=== PATIENT | male | born 1950 | race Caucasian/White ===

== ENCOUNTER → 2017-02-13 | Outpatient (CLI) | payer MEDICARE, OTHER ==
[~2017-02-13] MED LIST: ACET325T51 PO; CHOL50006 PO; FLUT16SP NAS; HYDR20TA PO; HYDR20TA3 PO; LEVO500T63 PO; LEVO88TA7 PO; SIMV20TA89 PO; SOTA160T PO; WARF5TAB8 PO
[2017-02-13 07:16] LABS: INR 2.37 (0.76-1.04); PROTHROMBIN TIME 25.8 SEC (9.31-12.49)
== END ==
LOC: LABNH.PM 00:49
PROVIDERS: ATTEND Family Medicine
DX: I48.91 Unspecified atrial fibrillation (principal)
CPT/HCPCS: 36415; 85610; P9604

== ENCOUNTER → 2017-02-15 | Outpatient (CLI) | payer MEDICARE, OTHER ==
[2017-02-15 00:42] LABS: BLOOD, URINE 3+ (NEGATIVE); COLOR,URINE YELLOW (YELLOW); LEUKOCYTE ESTERASE ,URINE NEGATIVE (NEGATIVE); NITRITE,URINE NEGATIVE (NEGATIVE); UROBILINOGEN,URINE 0.2 EU/DL (NORMAL)
[2017-02-15 00:50] LABS: BACTERIA,URINE NONE SEEN (NEGATIVE); WBC,URINE NONE SEEN /HPF (0-5)
== END ==
LOC: LABN.PM 00:23 → LABNH.PM 00:23
PROVIDERS: ATTEND Family Medicine
DX: N39.0 Urinary tract infection, site not specified (principal)
CPT/HCPCS: 81001; 87086

== ENCOUNTER → 2017-03-13 | Outpatient (CLI) | payer MEDICARE, OTHER ==
[2017-03-13 07:19] LABS: INR 2.15 (0.76-1.04); PROTHROMBIN TIME 23.4 SEC (9.31-12.49)
== END ==
LOC: LABNH.PM 01:43
PROVIDERS: ATTEND Family Medicine
DX: I48.91 Unspecified atrial fibrillation (principal)
CPT/HCPCS: 36415; 85610; P9604

== ENCOUNTER → 2017-03-20 | Outpatient (CLI) | payer MEDICARE, OTHER ==
[2017-03-20 06:26] LABS: BASOPHILS # (AUTO) 0.1 T/MM3 (0-0.2); BASOPHILS % (AUTO) 1.6 % (0-2); EOSINOPHILS % (AUTO) 14.7 % (0-4); HCT - HEMATOCRIT 48.4 % (41-53); HGB - HEMOGLOBIN 16.5 GM/DL (13.5-17.5); IMMATURE GRANULOCYTE # (AUTO) 0.01 T/MM3 (0.00-0.03); IMMATURE GRANULOCYTE % (AUTO) 0.1 % (0.0-0.5); LYMPHOCYTES # (AUTO) 2.1 T/MM3 (1-4.8); LYMPHOCYTES % (AUTO) 31.8 % (23-45); MEAN CORPUSCULAR HGB 31.6 UUG (26-34); MEAN CORPUSCULAR HGB CONC(MCHC 34.1 GM/DL (31-37); MEAN CORPUSCULAR VOLUME 92.7 UM3 (80-100); MEAN PLATELET VOLUME 9.1 UM3 (9.4-12.4); MONOCYTES # (AUTO) 0.8 T/MM3 (0-0.8); MONOCYTES % (AUTO) 12.5 % (0-9.0); NEUTROPHILS #(AUTO)-ABSOLUTE 2.7 T/MM3 (1.8-7.7); NEUTROPHILS % (AUTO) 39.3 % (33-66); RED BLOOD COUNT 5.22 M/MM3 (4.50-5.90); WBC - WHITE BLOOD COUNT 6.7 T/MM3 (4.5-11.0)
[2017-03-20 06:38] LABS: ANION GAP 10 MEQ/L (5-15); BUN/CREATININE RATIO 16 RATIO (6-26); CALCIUM 11.1 MG/DL (8.4-10.2); CHLORIDE 105 MEQ/L (98-107); CO2 - CARBON DIOXIDE 29 MEQ/L (22-30); CREATININE 0.8 MG/DL (0.8-1.5); GLOMERULAR FILTRATION RATE 97; GLUCOSE 107 MG/DL (75-110); POTASSIUM 4.3 MEQ/L (3.6-5); SODIUM 144 MEQ/L (134-144)
== END ==
LOC: LABNH.PM 00:14
PROVIDERS: ATTEND Family Medicine
DX: I50.9 Heart failure, unspecified (principal)
CPT/HCPCS: 36415; 80048; 85025; P9604

== ENCOUNTER → 2017-04-10 | Outpatient (CLI) | payer MEDICARE, OTHER ==
[2017-04-10 07:42] LABS: INR 2.05 (0.77-1.03); PROTHROMBIN TIME 22.4 SEC (9.48-12.52)
== END ==
LOC: LABNH.PM 01:39
PROVIDERS: ATTEND Family Medicine
DX: I48.91 Unspecified atrial fibrillation (principal)
CPT/HCPCS: 36415; 85610

== ENCOUNTER 2018-05-02 22:32 | Inpatient (IN) ==
--- NOTE | 2018-05-02 22:47 | Emergency Department Report ---
Fever HPI - General Stated Complaint: fever Dr was worried about Pneumonia Source: patient, family Mode of arrival: ambulatory Limitations: altered mental status - History of Present Illness HPI Narrative: Patient has had cough with fevers for several days. He was seen earlier in the day by his primary doctor, and was thought to have a probable pneumonia. No testing or x-rays were done, and they could not arrange to get the patient started on Levaquin 750 mg daily until tomorrow. Patient lives at a full nursing facility. Tonight the patient seemed worse, with fevers up to 102, increasing confusion, and increasing cough with mild decreased O2 saturations at 91%. Patient has no primary pulmonary diagnoses or treatments. - Related Data Home Medications Medication Instructions Recorded Confirmed Simvastatin 20 mg PO HS #0 03/13/14 05/02/18 Acetaminophen 650 mg PO Q4HR PRN #0 12/09/14 05/02/18 Cholecalciferol [Vit. D-3] 5,000 unit PO DAILY #0 11/17/16 05/02/18 Fluticasone Nasal Varnell [Flonase] 1 spray REINALDO DAILY #0 11/17/16 05/02/18 Sotalol HCl [Sotalol] 160 mg PO BID #0 11/17/16 05/02/18 warfarin 3 mg tablet 3 mg PO DAILY tab 09/28/17 05/02/18 Guaifenesin/Dextromethorphan 10 ml PO Q4H PRN 05/02/18 05/02/18 [Guaifenesin Dm Syrup] Levofloxacin [Levaquin] 1 tab PO DAILY 05/02/18 05/02/18 Naproxen 1 tab PO BID PRN 05/02/18 05/02/18 Previous Rx's Medication Instructions Recorded levothyroxine 112 mcg tablet 112 mcg PO QAM #90 tab 12/14/17 Cortef (Hydrocortisone) 20 mg 20 mg PO DAILY #30 tab 01/07/18 tablet Allergies Allergy/AdvReac Type Severity Reaction Status Date / Time No Known Drug Allergies Allergy Unknown Verified 05/02/18 23:23 Review of Systems All systems: reviewed and negative except as stated [facility] Medical History (Last Updated 09/27/17 @ 12:18 by Ruperto Reed MD) Hyperparathyroidism (Chronic Medical ~2014) Vitamin D deficiency (Chronic Medical ~01/2015) Hypothyroidism (Chronic Medical) Adrenal insufficiency (Chronic Medical ~01/2015) Obesity (BMI 30-39.9) (Chronic Medical) autism, diastolic dysfunction hypothyroid dyslipiddemia hard of hearing paroxysmal atrial fibrillation flecannide induced ventricular tachycarida Surgical History: meningocele repair possibly Family History: Family History (Last Updated 09/28/17 @ 09:24 by Princess Kent MA) Brother Diabetes Brother Diabetes Mother Cancer of breast - Social History Smoking status: Never smoker Alcohol intake: never Physical Exam - Limitations Limitations: altered mental status - General General appearance: alert, other (patient appears moderately sick) - Normal Exams: Head:: Normocephalic without trauma Eyes:: Pupils are PERRLA w/ EOMI, No scleral icterus, irritation, or foreign bodies noted ENMT:: No facial trauma, nasal exudates, pharyngeal erythema, or exudates are noted Neck:: Full range of motion, without adenopathy, JVD, bruits or thyromegaly Cardiovascular:: Regular rate and rhythm, without murmur or gallop, Pulses 2+ all extremities, capillary refill, <2 seconds all extremities Abdomen:: Bowel sounds positive, soft, non-tender, non-distended, no hepatosplenomegaly, masses or bruits noted Lymphatic:: No lymphadenopathy, or lymphedema noted Musculoskeletal:: No tenderness, or deformity noted, good range of motion, all extremities Integumentary:: No rashes, hives, or bruising noted, hair and nails, without abnormality Neurological:: Patient is alert, and oriented, cranial nerves, motor/sensory/ cerebellar, exams w/o gross deficits, to observation Psychiatric:: Patient exhibits, appropriate attention, emotion and affect - Chest Chest inspection: Present: normal inspection, symmetric chest wall rise. Absent : tenderness - Respiratory Respiratory exam: Absent: normal lung sounds bilaterally (course lung sounds bilaterally, harsh cough), respiratory distress, wheezes, stridor, accessory muscle use, prolonged expiratory phase Fever - MDM Narrative Medical decision making narrative: Initial O2 saturations after walking back to the bed were 90%. At rest patient does improve to 92%. Patient is given albuterol one treatment, normal saline 1 L bolus, and Toradol 30 mg IV CBC - white blood cell count with early left shift CMP - normal CXR - left lower lobe infiltrate consistent with pneumonia, mild right middle lobe/infrahilar infiltrate Lactate - normal Patient has improved on IV fluids, however after breathing treatment patient's pulse did increase dramatically. Blood pressures remained stable, but patient has the appearance of a worsening pneumonia, is recommended that he stay for inpatient admission for IV and biotics fluids and monitoring Dr. Sterling Perez will be admitting the patient, inpatient medical telemetry - Lab Data Result diagrams: 05/02/18 23:02 05/02/18 23:02 Disposition Clinical Impression: Left lower lobe pneumonia Qualifiers: Pneumonia type: due to unspecified organism Qualified Code(s): J18.1 - Lobar pneumonia, unspecified organism Disposition: 02 To [facility] [place] Acute Care Condition: Stable Prescriptions: No Action Simvastatin 20 mg PO HS #0 Acetaminophen 650 mg PO Q4HR PRN #0 PRN Reason: PAIN Fluticasone Nasal Varnell [Flonase] 1 spray REINALDO DAILY #0 Sotalol HCl [Sotalol] 160 mg PO BID #0 Naproxen 1 tab PO BID PRN PRN Reason: Pain Levofloxacin [Levaquin] 1 tab PO DAILY Cholecalciferol [Vit. D-3] 5,000 unit PO DAILY #0 Guaifenesin/Dextromethorphan [Guaifenesin Dm Syrup] 10 ml PO Q4H PRN PRN Reason: Cough warfarin 3 mg tablet 3 mg PO DAILY tab levothyroxine 112 mcg tablet 112 mcg PO QAM #90 tab Cortef (Hydrocortisone) 20 mg tablet 20 mg PO DAILY #30 tab Referrals: Hair Parra MD [Primary Care Provider] - - Seen By: physician
[2018-05-02] MEDS ORDERED: KETOROLAC 30 MG/ML INJECTION IVP ONE (22:50)
[2018-05-02] MEDS ORDERED: ALBUTEROL/IPRATROPIUM 2.5mg-0.5mg/3ml NEB AEROSOL ONE (22:50)
[2018-05-02] MEDS ORDERED: NS 1,000 ML IV ONE (22:50)
[2018-05-02] MEDS: SALINE FLUSH 10ml SYRINGE IVF PRN (23:08)
[2018-05-02] MEDS ORDERED: LEVOFLOXACIN PB 750 MG/150 ML BAG IV ONE (23:52)
[2018-05-02] MEDS ORDERED: NS FLUSH BAG 500ml IV PRN (23:56)
[2018-05-03] MEDS: SALINE FLUSH 10ml SYRINGE IVF PRN ×4 (00:01→23:04)
[2018-05-03] MEDS ORDERED: GUAIFENESIN/DM 5ml ORAL LIQUID PO PRN (00:45)
[2018-05-03] MEDS ORDERED: ACETAMINOPHEN 325 MG TABLET PO PRN (00:45)
[2018-05-03 00:49] VITALS: BMI 36.7
--- NOTE | 2018-05-03 00:49 | History & Physical Report ---
History of Present Illness Date: 05/03/18 Chief complaint: fever, cough, sweats HPI: 67 y/o w/ h/o PAF, hypothyroid, Autism, HLD comes to ER from [place] w/ couple of day h/o cough, fevers, sweats, tachypnea. Patient was seen earlier in the day by his primary doctor, and was thought to have a probable pneumonia. No testing or x-rays were done, and they could not arrange to get the patient started on Levaquin 750 mg daily until tomorrow. Patient lives at a full nursing facility. Tonight the patient seemed worse, with fevers up to 102, increasing malaise, and increasing cough with mild decreased O2 saturations at 91%. Patient has no primary pulmonary diagnoses or treatments. Patient denies CP, dyspnea, ADAMS, dysphagia, n/v/d and change in bowel/bladder function. IN ER patient had CXR concerning for LLL pneumonia and possible RML pneumonia. Patient had elevated WBC of 16.6 and was started on Levaquin IV 750mg x one and Vancomycin 1gram IV x one and IVFs. Patient also had DuoNeb treatment and current O2 sats reported at 93-94% on RA. Patient's lactic acid was 1.3, calcium 11.6 but otherwise remainder of labs WNL Patient given Toradol, acetaminophen in addition to the abx Patient admitted to the Hospitalist service for further evaluation and treatment. Review of Systems All systems PM: 10-point ROS was reviewed, no additional remarkable complaints except Past Medical History Medical History: Medical History (Last Updated 09/27/17 @ 12:18 by Ruperto Reed MD) Hyperparathyroidism (Chronic) Onset Date: ~2014 Vitamin D deficiency (Chronic) Onset Date: ~01/2015 Hypothyroidism (Chronic) Adrenal insufficiency (Chronic) Onset Date: ~01/2015 Obesity (BMI 30-39.9) (Chronic) Surgical History: meningocele repair possibly Family History: Family History (Last Updated 09/28/17 @ 09:24 by Princess Kent MA) Brother Diabetes Brother Diabetes Mother Cancer of breast Family History: As Above - Social History Smoking status: Never smoker Medications Home Medications Medication Instructions Recorded Confirmed Type Simvastatin 20 mg PO HS #0 03/13/14 05/02/18 History Acetaminophen 650 mg PO Q4HR PRN #0 12/09/14 05/02/18 History Cholecalciferol [Vit. D-3] 5,000 unit PO DAILY #0 11/17/16 05/02/18 History Fluticasone Nasal [place] [Flonase] 1 spray REINALDO DAILY #0 11/17/16 05/02/18 History Sotalol HCl [Sotalol] 160 mg PO BID #0 11/17/16 05/02/18 History warfarin 3 mg tablet 3 mg PO DAILY tab 09/28/17 05/02/18 History levothyroxine 112 mcg tablet 112 mcg PO QAM #90 tab 12/14/17 05/02/18 Rx Cortef (Hydrocortisone) 20 mg 20 mg PO DAILY #30 tab 01/07/18 05/02/18 Rx tablet Guaifenesin/Dextromethorphan 10 ml PO Q4H PRN 05/02/18 05/02/18 History [Guaifenesin Dm Syrup] Levofloxacin [Levaquin] 1 tab PO DAILY 05/02/18 05/02/18 History Naproxen 1 tab PO BID PRN 05/02/18 05/02/18 History Allergies Allergy/AdvReac Type Severity Reaction Status Date / Time No Known Drug Allergies Allergy Unknown Verified 05/02/18 23:23 Exam Vital Signs: Temperature 98.4 F 05/03/18 00:04 Pulse Rate 89 05/03/18 00:15 Respiratory Rate 25 H 05/03/18 00:15 Blood Pressure 122/59 05/03/18 00:15 Pulse Oximetry 91 05/03/18 00:24 Results - Labs CBC & Chem 7: 05/03/18 07:14 05/03/18 07:14 Assessment and Plan Assessment and Plan: Assessment: 1) Acute LLL HCAP POA 2) PAF 3) Elevated Calcium w/ h/o HyperPTHism 4) Hypothyroidism 5) Adrenal insufficiency 6) Autism 7) HLD 8) Chronic anticoagulation w/ warfarin PLan Admit to Hospitalist Treat for HCAP w/ Levaquin, Ceciliasyn, Vanc Pharmacy to dose Vanc Check CBC, BMP, PT/INR and Mag level in AM IVFs that of NS at 75 cc/hour Supportive Care Telemetry Home meds as indicated including warfarin and sotalol Regular low fat diet DNR is patient's desired code status RT consult - nebs and Oxygen therapy as needed CROW Assessment Health Care Associated Pneumonia Sepsis secondary to pneumonia - SIRS criteria Leukocytosis with shift, tachypnea , tele elevation at [place] AFIB - RVR Warfarin anticoagulation secondary to afib HDL on statin therapy Hypothyroidism Hyperparathyroidism Hypercalcemia secondary to hyperparathyroidism Adrenal insufficiency Vit D deficiency Autism Obesity with BMI 36.8 Plan Inpatient admission to [facility] for treatment of sepsis secondary to HCAP. Anticipate greater than 2 midnights of care needed. Initiate Zosyn levofloxacin and vancomycin for antimicrobial coverage. Respiratory support with O2 as needed. IVF of NS at 75cc/hr for hydration. Pharm consult for warfarin monitoring and adjustment. Tele secondary to afib. Continue with home medications, adjusting warfarin as needed. Speech eval secondary to pneumonia to help exclude aspiration. Check Phos secondary to hyperparathyroidism and hypercalcemia. Check TSH due to hypothyroidism and afib. Monitor CBC secondary to pneumonia and sepsis. Will need to monitor BMP secondary to IVF use and medications. DNR as per his requests. Care to return to Dr Parra at time of discharge from [facility]. DVT Prophylaxis: Coumadin Resuscitation Status: Do Not Resuscitate - Physician Narrative Physician: Marcial Maria MD Narrative: Date: 05/03/18 Time: 1131 Crow Have independently interviewed and examined pt. Chart reviewed. reviewed above not and concur. CC: Increasing cough, temp elevation. HPI: 67 y/o male with autism who resides in [facility] presents to ED secondary to increasing cough and temp elevation. Symptoms onset about 2 days before presentation. Was seen by Dr Parra on 05/02 and concern for pneumonia as raised - was to start on oral levofloxacin, but medication not able to be obtained until 05/03. When return to his care facility, developed increasing respiratory rate and work of breathing. Temp showing elevation. Transported to [facility] for evaluation. CXR showing infiltrate and WBC elevated at 16.6 with 75% neutrophils. Patient admitted to inpatient for treatment of Pneumonia with subsequent sepsis syndrome. PHMx: Parosymal atrial fib, Anticoagulation with warfarin, HDL. Hypothyroidism, Hyperparathyroidism, Adrenal insufficiency, Vit D deficiency, Autism, Obesity All: NKDA MEDS: sed MAR SHx: Singe, resides at [facility] in [place]. No smoke. Dr Parra PCP FHx: Mother of breast Ca. Brothers with DM ROS: limited by autism, currently only thing he says is yes. EXAM GEN: [id number] Awake alert HEENT: NC/AT PERRLA EOMI MMM NECK: supple, Trachea midline Lungs: Decrease breath sounds bilaterally. Shallow, rapid breathing. CV: tachy, irregular AB: soft, obese, NT/ND BS decreased EXT: No clubbing or cyanosis. 1+ BLE. Neuro: CN II-XII intact. No focal motor deficits Psych: awake alert, not agitated or restless Skin: warm and dry MS: normal muscle tone of upper/lower ext Lab: noted Assessment Health Care Associated Pneumonia Sepsis secondary to pneumonia - SIRS criteria Leukocytosis with shift, tachypnea , tele elevation at [place] AFIB - RVR Warfarin anticoagulation secondary to afib HDL on statin therapy Hypothyroidism Hyperparathyroidism Hypercalcemia secondary to hyperparathyroidism Adrenal insufficiency Vit D deficiency Autism Obesity with BMI 36.8 Plan Inpatient admission to [facility] for treatment of sepsis secondary to HCAP. Anticipate greater than 2 midnights of care needed. Initiate Zosyn levofloxacin and vancomycin for antimicrobial coverage. Respiratory support with O2 as needed. IVF of NS at 75cc/hr for hydration. Pharm consult for warfarin monitoring and adjustment. Tele secondary to afib. Continue with home medications, adjusting warfarin as needed. Speech eval secondary to pneumonia to help exclude aspiration. Check Phos secondary to hyperparathyroidism and hypercalcemia. Check TSH due to hypothyroidism and afib. Monitor CBC secondary to pneumonia and sepsis. Will need to monitor BMP secondary to IVF use and medications. DNR as per his requests. Care to return to Dr Parra at time of discharge from [facility]. Hospital Course Summary Disclaimer: The visit summary below is not to be considered part of the above Progress Note. Hospital Course: 05/03/18 Inpatient admission to [facility] for treatment of sepsis secondary to HCAP. Anticipate greater than 2 midnights of care needed. Initiate Zosyn levofloxacin and vancomycin for antimicrobial coverage. Respiratory support with O2 as needed. IVF of NS at 75cc/hr for hydration. Pharm consult for warfarin monitoring and adjustment. Tele secondary to afib. Continue with home medications, adjusting warfarin as needed. Speech eval secondary to pneumonia to help exclude aspiration. Check Phos secondary to hyperparathyroidism and hypercalcemia. Check TSH due to hypothyroidism and afib. Monitor CBC secondary to pneumonia and sepsis. Will need to monitor BMP secondary to IVF use and medications. DNR as per his requests. Care to return to Dr Parra at time of discharge from [facility].
[2018-05-03] MEDS: NS 1,000 ML IV SCH ×2 (01:03→21:05)
[2018-05-03] MEDS: PIPERACILLIN/TAZOBACTAM 3.375 GM in NS 100 ML IV SCH ×5 (03:00→20:28)
[2018-05-03] MEDS: LEVOTHYROXINE 112 MCG TABLET PO SCH (06:25)
[2018-05-03] MEDS ORDERED: SOTALOL 80 MG TABLET PO SCH (06:30)
[2018-05-03] MEDS: ALBUTEROL 2.5mg/3ml (0.083%) NEB AEROSOL PRN (06:44)
[2018-05-03] MEDS ORDERED: VANCOMYCIN - PHARMACY CONSULT MC ONE (06:56)
--- NOTE | 2018-05-03 07:50 | XRay Report ---
INDICATION: cough, fever PROCEDURE: CHEST 2-VIEWS UPRIGHT (PA & LAT) Encounter: Initial COMPARISON: November 20, 2016 FINDINGS: Airspace consolidation in both lower lobes, left greater than right. Lateral view is suboptimal. Upper lobes are clear. No pneumothorax. Heart size and mediastinal contours are stable. Pulmonary vascularity is unchanged. Scoliosis and degenerative change in the spine. Impression: Lower lobe pneumonia or aspiration. .
[2018-05-03] MEDS ORDERED: METOPROLOL 5mg/5ml INJECTION IVP ONE ×2 (08:23→10:01)
--- NOTE | 2018-05-03 08:38 | Pharmacy Consult-Antibiotics ---
Pharmacy Consult-Vancomycin - Laboratory Information WBC 13.8 T/MM3 (4.5-11.0) H 05/03/18 07:14 BUN 22.0 MG/DL (9-20) H 05/03/18 07:14 Creatinine 1.2 mg/dL (0.8-1.5) 05/03/18 07:14 - Consult Information Consult for vancomycin therapy noted from Dr Perez for Mr Mchugh, who is 67 years old and weighs 113.1kg. A one time dose of vancomycin 1 gram was given at 0130 this morning. Will begin vancomycin 1500mg IV q12h. Will continue to follow. Thank you.
[2018-05-03] MEDS: FLUTICASONE NASAL SPRAY 50mcg EA NOSTRIL SCH (09:10)
[2018-05-03] MEDS: HYDROCORTISONE 20 MG TABLET PO SCH (09:10)
[2018-05-03] MEDS ORDERED: WARFARIN - PHARMACY CONSULT MC ONE (09:51)
--- NOTE | 2018-05-03 10:44 | Pharmacy Consult ---
Pharmacy Consult-Warfarin - Laboratory Information 05/03/18 05/03/18 07:14 07:14 Hgb 14.1 Hct 41.6 INR 1.88 H - Consult Information Coumadin Consult: Day 1: Dx: LLL Pneumonia Baseline INR = 1.88 BE is an 67 yo patient with diagnoses of paroxysmal atrial fibrillation. Topher patient is on antcoagulation therapy with Warfarin 3 mg p o daily. Date INR Dose 05/03 1.88 4 mg I'm going to give Warfarin 4 mg p.o. today as the INR is subtherapeutic. The pharmacy will continue to monitor the INR's and will adjust the Warfarin accordingly. Thank you for the Protocol, Prakash Mayorga, Pharmacist
[2018-05-03] MEDS ORDERED: WARFARIN 4 MG TABLET PO SCH (12:00)
[2018-05-03] MEDS ORDERED: WARFARIN 3 MG TABLET PO SCH (12:00)
[2018-05-03] MEDS ORDERED: DiltiaZEM 25 MG/5 ML INJECTION IVP ONE ×2 (13:16→16:06)
--- NOTE | 2018-05-03 16:10 | Cardiology Consult Note ---
<Yamile Henson Sandra - Last Filed: 05/06/18 13:14> History of Present Illness Consult date: 05/03/18 Requesting physician: Marcial Maria Consult reason: atrial fibrillation Chief complaint: fever, cough History of present illness: Bradley is a 67 year old male with a history of PAF on Coumadin and Sotalol, HLD, hypothyroidism and autism who resides in [place] presented to ED secondary to increasing cough and temp elevation. Symptoms onset about 2 days before presentation. Was seen by Dr Parra on 05/02 and concern for pneumonia as raised - was to start on oral levofloxacin, but medication not able to be obtained until 05/03. When return to his care facility, developed increasing respiratory rate and work of breathing. Temp showing elevation. Transported to [facility] [place]. CXR showing infiltrate and WBC elevated at 16.6 with 75% neutrophils. He was admitted to inpatient for treatment of Pneumonia with subsequent sepsis syndrome. Due to atrial fibrillation with elevated rate Dr. Almonte is consulted and we appreciate the consult. Review of Systems ROS unobtainable: due to mental status [facility] Patient Stated Medical History Hearing Loss Yes Cardiac Arrhythmia Yes: A-FIB Congestive Heart Failure Yes Hypertension Yes Other Cardiology Yes: NONRHEUMATIC MITRAL INSUFFICIENCY Other Respiratory Yes: CHRONIC SINUSITIS Other GI Yes: COLITIS Other Hematologic Yes: ANTICOAGULATION THERAPY Cellulitis Yes Clinic Medical History (Last Updated 09/27/17 @ 12:18 by Ruperto Reed MD) Hyperparathyroidism (Chronic Medical ~2014) Vitamin D deficiency (Chronic Medical ~01/2015) Hypothyroidism (Chronic Medical) Adrenal insufficiency (Chronic Medical ~01/2015) Obesity (BMI 30-39.9) (Chronic Medical) Surgical History: meningocele repair possibly Family History: Family History (Last Updated 09/28/17 @ 09:24 by Princess Kent MA) Brother Diabetes Brother Diabetes Mother Cancer of breast - Social History Smoking status: Never smoker Alcohol intake: never Medications Home Medications Medication Instructions Recorded Confirmed Type Simvastatin 20 mg PO HS #0 03/13/14 05/02/18 History Acetaminophen 650 mg PO Q4HR PRN #0 12/09/14 05/02/18 History Cholecalciferol [Vit. D-3] 5,000 unit PO DAILY #0 11/17/16 05/02/18 History Fluticasone Nasal [place] [Flonase] 1 spray REINALDO DAILY #0 11/17/16 05/02/18 History Sotalol HCl [Sotalol] 160 mg PO BID #0 11/17/16 05/02/18 History warfarin 3 mg tablet 3 mg PO DAILY tab 09/28/17 05/02/18 History levothyroxine 112 mcg tablet 112 mcg PO QAM #90 tab 12/14/17 05/02/18 Rx Cortef (Hydrocortisone) 20 mg 20 mg PO DAILY #30 tab 01/07/18 05/02/18 Rx tablet Guaifenesin/Dextromethorphan 10 ml PO Q4H PRN 05/02/18 05/02/18 History [Guaifenesin Dm Syrup] Levofloxacin [Levaquin] 1 tab PO DAILY 05/02/18 05/02/18 History Naproxen 1 tab PO BID PRN 05/02/18 05/02/18 History Allergies Allergy/AdvReac Type Severity Reaction Status Date / Time No Known Drug Allergies Allergy Unknown Verified 05/02/18 23:23 Exam Vital signs: Temperature 96.1 F L 05/03/18 15:34 Pulse Rate 151 H 05/03/18 15:34 Respiratory Rate 32 H 05/03/18 15:34 Blood Pressure 131/69 05/03/18 15:34 Pulse Oximetry 94 05/03/18 15:34 - Constitutional mild distress, obese, cooperative - Routine HEENT Exam Head: Present: normocephalic ENT: Present: mucous membranes dry - Routine Neck Exam Absent: JVD, carotid bruit - Routine Chest/Breast/Axilla Exam Chest wall: Absent: tenderness - Routine Respiratory Exam Present: dyspnea, diminished air movement - Routine Cardiovascular Exam Present: tachycardia, irregularly irregular - Routine Abdominal Exam Present: soft - Routine Extremities Exam Present: edema (BLE) - Routine Skin Exam Present: intact, warm - Routine Neurological Exam Present: alert Results 05/03/18 07:14 05/03/18 07:14 CBC 05/03/18 Range/Units 07:14 WBC 13.8 H (4.5-11.0) T/MM3 RBC 4.37 L (4.50-5.90) M/MM3 Hgb 14.1 (13.5-17.5) GM/DL Hct 41.6 (41-53) % Plt Count 187 (130-400) T/MM3 Neut # (Auto) 10.0 H (1.8-7.7) T/MM3 Lymph # (Auto) 1.6 (1-4.8) T/MM3 [place] # (Auto) 1.8 H (0-0.8) T/MM3 Eos # (Auto) 0.3 (0-0.5) T/MM3 Baso # (Auto) 0.0 (0-0.2) T/MM3 Comprehensive Metabolic Panel 05/03/18 Range/Units 07:14 Sodium 141 (136-146) MEQ/L Potassium 4.0 (3.6-5) MEQ/L Chloride 106 (98-107) MEQ/L Carbon Dioxide 25 (22-30) MEQ/L BUN 22.0 H (9-20) MG/DL Creatinine 1.2 (0.8-1.5) mg/dL Glucose 159 H (75-110) MG/DL Calcium 11.3 H (8.4-10.2) MG/DL Intake and Output 05/03/18 05/03/18 05/03/18 06:59 14:59 22:59 Intake Total 500 / 1500 840 / 840 Output Total 50 / 50 50 / 50 Balance 500 / 1500 790 / 790 -50 / -50 Intake: IV 500 / 500 600 / 600 Levofloxacin Pb 750 mg In 150 150 / 150 ml @ 100 mls/hr IV Q24H [facility] Rx# :[id number] Ns 1,000 ml @ 75 mls/hr IV . 0 / 0 [id number] [facility] Rx#:[id number] Piperacillin/Tazobactam 3.375 100 / 100 100 / 100 gm In Ns 100 ml @ 200 mls/hr IV Q6H [facility] Rx#:[id number] Vancomycin 1,000 mg In NS 250ml 250 / 250 250 ml @ 250 mls/hr IV O [facility] Rx#:[id number] Vancomycin 1,500 mg In NS 500ml 500 / 500 500 ml @ 250 mls/hr IV 1000, 2200 [facility] Rx#:[id number] Oral 240 / 240 Output: Urine 50 / 50 50 / 50 Other: Urine Appearance Clear Cloudy Urine Color Dark Yellow Dark Yellow Stool Color Brown Stool Consistency Soft Formed Size of Bowel Movement Moderate Weight 248 lb 10.903 oz 249 lb 5.485 oz Patient Weight 05/04/18 06:59 Weight 249 lb 5.485 oz - Imaging and Cardiology Imaging & Cardiology Narrative: = = = = = = = = = = = = = = = = = = = = = = = = = = = = = = = = = = = = = = = = = = = = = = = = = = = = = = = = = = = Date of Exam: 05/02/18 Ordering Provider: Sterling Gross MD Type of Exam(s): XR chest 2V Reason for Exam(s): cough, fever INDICATION: cough, fever PROCEDURE: CHEST 2-VIEWS UPRIGHT (PA & LAT) Encounter: Initial COMPARISON: November 20, 2016 FINDINGS: Airspace consolidation in both lower lobes, left greater than right. Lateral view is suboptimal. Upper lobes are clear. No pneumothorax. Heart size and mediastinal contours are stable. Pulmonary vascularity is unchanged. Scoliosis and degenerative change in the spine. Impression: Lower lobe pneumonia or aspiration. 05/03/18 16:45 EKG interpretations - Dysrhythmias Supraventricular dysrhythmia: atrial fibrillation (RVR, rate 130) Assessment and Plan - Assessment and Plan (1) Atrial fibrillation with RVR Current visit: Yes Status: Acute - Cardizem 15mg IV now (Has had 10mg dose) - Metoprolol 5mg IV Q6h prn HR >100 - Digoxin 500mcg IV now - Digoxin 250mcg IV at 2300 - 2D echo - TSH and Mag - Takes Coumadin, INR 1.88 (2) Left lower lobe pneumonia Current visit: Yes Status: Acute per attending (3) Hypothyroidism Current visit: Yes Status: Chronic TSH with free T4 (4) Mixed hyperlipidemia Current visit: Yes Status: Chronic continue statin - Assessment and Plan AFib with RVR: - Cardiazem 15mg IV now (Has had 10mg dose) - Metoprolol 5mg IV Q6h prn HR >100 - Digoxin 500mcg IV now - Digoxin 250mcg IV at 2300 - 2D echo - TSH and Mag - Takes Coumadin, INR 1.88 Thank you for allowing us to participate in the care of this patient. Hospital Course Summary Disclaimer: The visit summary below is not to be considered part of the above Progress Note. Hospital Course: 05/03/18 Inpatient admission to [facility] for treatment of sepsis secondary to HCAP. Anticipate greater than 2 midnights of care needed. Initiate Zosyn levofloxacin and vancomycin for antimicrobial coverage. Respiratory support with O2 as needed. IVF of NS at 75cc/hr for hydration. Pharm consult for warfarin monitoring and adjustment. Tele secondary to afib. Continue with home medications, adjusting warfarin as needed. Speech eval secondary to pneumonia to help exclude aspiration. Check Phos secondary to hyperparathyroidism and hypercalcemia. Check TSH due to hypothyroidism and afib. Monitor CBC secondary to pneumonia and sepsis. Will need to monitor BMP secondary to IVF use and medications. DNR as per his requests. Care to return to Dr Parra at time of discharge from [facility]. <Ab Hastings - Last Filed: 05/07/18 13:21> [facility] Patient Stated Medical History Hearing Loss Yes Cardiac Arrhythmia Yes: A-FIB Congestive Heart Failure Yes Hypertension Yes Other Cardiology Yes: NONRHEUMATIC MITRAL INSUFFICIENCY Sleep Apnea No Other Respiratory Yes: CHRONIC SINUSITIS Other GI Yes: COLITIS Other Hematologic Yes: ANTICOAGULATION THERAPY Cellulitis Yes Clinic Medical History (Last Updated 09/27/17 @ 12:18 by Ruperto Reed MD) Hyperparathyroidism (Chronic Medical ~2014) Vitamin D deficiency (Chronic Medical ~01/2015) Hypothyroidism (Chronic Medical) Adrenal insufficiency (Chronic Medical ~01/2015) Obesity (BMI 30-39.9) (Chronic Medical) Family History: Family History (Last Updated 09/28/17 @ 09:24 by Princess Kent MA) Brother Diabetes Brother Diabetes Mother Cancer of breast Exam Vital signs: Temperature 96.5 F L 05/07/18 12:00 Pulse Rate 78 05/07/18 12:00 Respiratory Rate 20 05/07/18 12:00 Blood Pressure 124/67 05/07/18 12:00 Pulse Oximetry 96 05/07/18 12:00 Results 05/07/18 04:28 05/07/18 04:28 CBC 05/07/18 Range/Units 04:28 WBC 12.4 H (4.5-11.0) T/MM3 RBC 4.28 L (4.50-5.90) M/MM3 Hgb 14.0 (13.5-17.5) GM/DL Hct 40.7 L (41-53) % Plt Count 308 (130-400) T/MM3 Neut # (Auto) Not performed Lymph # (Auto) Not performed [place] # (Auto) Not performed Eos # (Auto) Not performed Baso # (Auto) Not performed Comprehensive Metabolic Panel 05/07/18 Range/Units 04:28 Sodium 140 (136-146) MEQ/L Potassium 4.1 (3.6-5) MEQ/L Chloride 105 (98-107) MEQ/L Carbon Dioxide 27 (22-30) MEQ/L BUN 12.0 (9-20) MG/DL Creatinine 0.8 (0.8-1.5) mg/dL Glucose 112 H (75-110) MG/DL Calcium 11.1 H (8.4-10.2) MG/DL Intake and Output 05/06/18 05/07/18 05/07/18 22:59 06:59 14:59 Intake Total 1770 / 1770 720.000 / 720.000 660 / 660 Output Total 900 / 900 400 / 400 450 / 450 Balance 870 / 870 320.000 / 320.000 210 / 210 Intake: IV 200 / 200 600.000 / 600.000 Piperacillin/Tazobactam 3.375 200 / 200 100 / 100 gm In Ns 100 ml @ 200 mls/hr IV Q6H [facility] Rx#:[id number] Vancomycin 1,500 mg In NS 500ml 500.000 / 500.000 500 ml @ 250 mls/hr IV 1000, 2200 [facility] Rx#:[id number] Oral 1570 / 1570 120 / 120 660 / 660 Output: Urine 600 / 600 400 / 400 450 / 450 Urine Amount (Catheter) 300 / 300 Other: Urine Appearance Clear Clear Clear Urine Color Yellow Pale Yellow Yellow # Voids 1 1 # Incontinent Voids 1 1 Weight 117.9 kg Patient Weight 05/08/18 06:59 Weight 117.9 kg Assessment and Plan - Attestation Attestation Narrative: 05/07/18 13:21 Recommendation After examining the patient I agree with the above assessment. I am involved in the formulation of the patient's plan of care. - Assessment and Plan (1) Hypothyroidism Current visit: Yes Status: Chronic (2) Left lower lobe pneumonia Current visit: Yes Status: Acute (3) Atrial fibrillation with RVR Current visit: Yes Status: Acute (4) Mixed hyperlipidemia Current visit: Yes Status: Chronic Hospital Course Summary Disclaimer: The visit summary below is not to be considered part of the above Progress Note.
[2018-05-03] MEDS ORDERED: DIGOXIN 500 MCG/2 ML INJECTION IVP ONE ×2 (16:29→23:00)
[2018-05-03] MEDS: METOPROLOL 5mg/5ml INJECTION IVP PRN (18:18)
[2018-05-03] MEDS: DiltiaZEM Drip 125 MG in NS 125 ML IV SCH (19:29)
[2018-05-03] MEDS: SIMVASTATIN 20 MG TABLET PO SCH (20:12)
[2018-05-04] MEDS: DiltiaZEM Drip 125 MG in NS 125 ML IV SCH ×3 (02:31→21:56)
[2018-05-04] MEDS: PIPERACILLIN/TAZOBACTAM 3.375 GM in NS 100 ML IV SCH ×4 (02:57→20:35)
[2018-05-04] MEDS: LEVOTHYROXINE 112 MCG TABLET PO SCH ×2 (04:40→05:36)
[2018-05-04] MEDS: NS 1,000 ML IV SCH (04:47)
--- NOTE | 2018-05-04 08:59 | Pharmacy Consult ---
Pharmacy Consult-Warfarin - Laboratory Information 05/03/18 05/03/18 05/04/18 07:14 07:14 04:40 Hgb 14.1 Hct 41.6 INR 1.88 H 2.57 H 05/04/18 04:43 Hgb 13.3 L Hct 39.6 L INR - Consult Information warfarin consult: day 2 67 yo M with history of atrial fibrillation and chronic anticoagulation with warfarin. home dose: Warfarin 3 mg po daily. target INR= 2.0 to 3.0. INR slightly sub-therapeutic on admission at 1.88. Date INR Dose 05/03 1.88 4 mg 05/04 2.57 plan: 1 mg INR has increased significantly from yesterday's result. Will give a dose of Warfarin 1 mg po x 1 dose today. Drug- drug interactions exist between Warfarin and Zosyn and also warfarin and Levaquin (Levaquin was a 1 time dose) both of these interactions have the potential to increase INR and risk of bleeding. The pharmacy will continue to monitor the INR's and will adjust the Warfarin accordingly. Thank you for the Protocol, Carina Alvarado RPh
[2018-05-04] MEDS: HYDROCORTISONE 20 MG TABLET PO SCH (09:05)
[2018-05-04] MEDS: FLUTICASONE NASAL SPRAY 50mcg EA NOSTRIL SCH (09:05)
[2018-05-04] MEDS ORDERED: WARFARIN 1 MG TABLET PO SCH (12:00)
--- NOTE | 2018-05-04 12:28 | Progress Note ---
- Date 05/04/18 Subjective: F/U: Health Care Associated Pneumonia, Sepsis syndrome secondary to pneumonia Sitting up in chair-more interactive that yesterday. Breathing less distress. Tracks better. Has been taking in food well. Maintaining saturations of RA. HR improved with diltiazem drip. Objective Vital signs: Temperature 98.1 F 05/04/18 08:00 Pulse Rate 86 05/04/18 11:15 Respiratory Rate 34 H 05/04/18 11:15 Blood Pressure 114/64 05/04/18 11:15 Pulse Oximetry 95 05/04/18 11:15 Height/Weight/BMI: Height 1.75 m Weight 115.7 kg Body Mass Index 36.7 - Constitutional Present: well nourished, well developed, average body habitus, obese, cooperative - Routine HEENT Exam Head: Present: normocephalic, atraumatic Eye: Present: EOMI, PERRL ENT: Present: mucous membranes moist - Routine Respiratory Exam Present: decreased breath sounds, respiratory distress (Mild), wheezes (Faint end expiratory), diminished air movement - Routine Cardiovascular Exam Present: no murmur, irregular rhythm, irregularly irregular - Routine Abdominal Exam Present: soft, normoactive bowel sounds, non distended, non tender - Routine Extremities Exam Present: edema (Trace), pulses intact. Absent: cyanosis, clubbing - Routine Skin Exam Present: dry, warm - Routine Neurological Exam Present: alert, moving all extremities, vision grossly intact, hearing grossly intact. Absent: motor deficit - Routine Psychiatric Exam Present: cooperative. Absent: agitated, paranoid Results - Labs CBC & Chem 7: 05/04/18 04:43 05/04/18 04:43 Assessment and Plan Assessment and Plan: Assessment Health Care Associated Pneumonia Sepsis secondary to pneumonia - SIRS criteria Leukocytosis with shift, tachypnea , tele elevation at IN AFIB - RVR Warfarin anticoagulation secondary to afib HDL on statin therapy Hypothyroidism Hyperparathyroidism Hypercalcemia secondary to hyperparathyroidism Adrenal insufficiency Vit D deficiency Autism Obesity with BMI 36.8 Plan WBC improving, less respiratory distress. Will continue Zosyn and Vancomycin for coverage - did not continue levofloxacin secondary to afib/RVR and potential need for CV meds. Continue Diltiazem drip as per cardiology to help heart rate/rhythm. Will stop IVF as taking oral well. Phos low -will start oral Phosphorus once a day with lunch. Recheck CBC in am due to pneumonia and resolving sepsis. Repeat BMP in am due to medications. Will check portable cxr in am for follow up of pneumonia. Case discussed with CCU nursing. Time spent with patient care 25 minutes. DVT Prophylaxis: Coumadin Resuscitation Status: Do Not Resuscitate - Time spent with patient Time with patient PN: 25 minutes - Physician Narrative Physician: Marcial Maria MD Narrative: Date: 05/04/18 Time: 1225 Hospital Course Summary Disclaimer: The visit summary below is not to be considered part of the above Progress Note. Hospital Course: 05/03/18 [place]patient [place] [facility] [place] secondary to HCAP. Anticipate greater than 2 midnights of care needed. Initiate Zosyn levofloxacin and vancomycin for antimicrobial coverage. Respiratory support with O2 as needed. IVF of NS at 75cc/hr for hydration. Pharm consult for warfarin monitoring and adjustment. Tele secondary to afib. Continue with home medications, adjusting warfarin as needed. Speech eval secondary to pneumonia to help exclude aspiration. Check Phos secondary to hyperparathyroidism and hypercalcemia. Check TSH due to hypothyroidism and afib. Monitor CBC secondary to pneumonia and sepsis. Will need to monitor BMP secondary to IVF use and medications. DNR as per his requests. Care to return to Dr Parra at time of discharge from [facility]. HR increased to 130-150s. Attempted boluses of IV metoprolol and diltiazem without sustained effect. Consult placed to Dr Hastings for cardiac evaluation. Transfer to CCU for IV diltiazem drip. 05/04/18 WBC improving, less respiratory distress. Will continue Zosyn and Vancomycin for coverage - did not continue levofloxacin secondary to afib/RVR and potential need for CV meds. Continue Diltiazem drip as per cardiology to help heart rate/rhythm. Will stop IVF as taking oral well. Phos low -will start oral Phosphorus once a day with lunch. Recheck CBC in am due to pneumonia and resolving sepsis. Repeat BMP in am due to medications. Will check portable cxr in am for follow up of pneumonia.
[2018-05-04] MEDS: POTASSIUM ACID PHOSPHATE 500 MG TABLET (URINARY ACIDIFIER) PO SCH (13:17)
--- NOTE | 2018-05-04 17:11 | Cardiology Progress Note ---
<Dia Espitia K - Last Filed: 05/04/18 17:22> Subjective Principal diagnosis: Atrial Fibrillation with RVR Exam Vital signs: Temperature 98.1 F 05/04/18 13:30 Pulse Rate 66 05/04/18 16:00 Respiratory Rate 34 H 05/04/18 11:15 Blood Pressure 114/64 05/04/18 11:15 Pulse Oximetry 96 05/04/18 15:43 Inpatient Medications: Generic Name Dose Route Start Last Admin Trade Name Freq PRN Reason Stop Dose Admin Acetaminophen 650 mg 05/03/18 00:45 Tylenol PO Q4HR PRN P Albuterol Sulfate 2.5 mg 05/03/18 06:20 05/03/18 06:44 Proventil Neb (0.083%) AEROSOL 2.5 mg Q4H PRN Administration Cholecalciferol 5,000 unit 05/03/18 09:00 05/04/18 09:05 Vit. D-3 PO 5,000 unit DAILY [facility] Administration Fluticasone Propionate 1 spray 05/03/18 09:00 05/04/18 09:05 Flonase EA NOSTRIL 1 spray DAILY V[facility]GIL Administration Guaifenesin/Dextromethorphan 10 ml 05/03/18 00:45 Robitussin Dm PO Q4H PRN Cough Hydrocortisone 20 mg 05/03/18 09:00 05/04/18 09:05 Cortef PO 20 mg DAILY [facility] Administration Piperacillin Sod/Tazobactam 100 mls @ 200 mls/hr 05/03/18 00:45 05/04/18 16: 04 Sod 3.375 gm/ Sodium Chloride IV Infused Q6H [facility] Infusion Vancomycin HCl 1,500 mg/ 500 mls @ 250 mls/hr 05/03/18 10:00 05/04/18 12:46 Sodium Chloride IV Infused 1000,2200 [facility] Infusion Diltiazem HCl 125 mg/ Sodium 125 mls @ 5 mls/hr 05/03/18 19:00 05/04/18 16:00 Chloride IV 15 mls/hr .Q24H V[facility] Infusion Protocol Levothyroxine Sodium 112 mcg 05/03/18 06:30 05/04/18 05:36 Synthroid PO Not Given ACB V[facility]IL Metoprolol Tartrate 5 mg 05/03/18 16:31 05/03/18 18:18 Lopressor IVP 5 mg Q6H PRN Administration Tachycardia Potassium Phosphate 1,000 mg 05/04/18 12:00 05/04/18 13:17 K-Phos Original (Urinary Acidifier) PO 1,000 mg WL [facility] Administration Simvastatin 20 mg 05/03/18 21:00 05/03/18 20:12 Zocor PO 20 mg HS VIRGIL Administration Sodium Chloride 10 - 80 ml 05/02/18 22:47 05/03/18 23:04 Iv Flush IVF 20 ml PRN PRN Administration Flushing Warfarin Sodium 0 05/03/18 10:00 Coumadin Protocol NOTE V[facility]GIL Discontinued Medications Generic Name Dose Route Start Last Admin Trade Name Freq PRN Reason Stop Dose Admin Albuterol/Ipratropium 3 ml 05/02/18 22:50 05/02/18 22:58 Duoneb AEROSOL 05/02/18 22:51 3 ml O ONE Administration Digoxin 250 mcg 05/03/18 23:00 05/03/18 23:04 Lanoxin IVP 05/03/18 23:01 250 mcg O ONE Administration Digoxin 500 mcg 05/03/18 16:29 05/03/18 17:23 Lanoxin IVP 05/03/18 16:30 500 mcg O ONE Administration Diltiazem HCl 10 mg 05/03/18 13:16 05/03/18 13:34 Cardizem 25 Mg Inj IVP 05/03/18 13:17 10 mg O ONE Administration Diltiazem HCl 15 mg 05/03/18 16:06 05/03/18 16:13 Cardizem 25 Mg Inj IVP 05/03/18 16:07 15 mg O ONE Administration Sodium Chloride 1,000 mls @ 999.9 mls/hr 05/02/18 22:50 05/03/18 00:05 Normal Saline IV 05/02/18 23:49 Infused .Q1H ONE Infusion Levofloxacin/Dextrose 750 mg in 150 mls @ 100 mls/hr 05/02/18 23:52 05/03/18 01:40 Levaquin 750 Mg Premix IV 05/03/18 01:21 Infused Q24H ONE Infusion Vancomycin HCl 1,000 mg/ 250 mls @ 250 mls/hr 05/03/18 00:30 05/03/18 03:00 Sodium Chloride IV 05/03/18 00:31 Infused O ONE Infusion Sodium Chloride 1,000 mls @ 75 mls/hr 05/03/18 00:45 05/04/18 13:30 Normal Saline IV Infused .[id number] V[facility]GIL Infusion Ketorolac Tromethamine 30 mg 05/02/18 22:50 05/02/18 23:08 Toradol Inj IVP 05/02/18 22:51 30 mg O ONE Administration Metoprolol Tartrate 5 mg 05/03/18 08:23 05/03/18 09:10 Lopressor IVP 05/03/18 08:24 5 mg O ONE Administration Metoprolol Tartrate 5 mg 05/03/18 10:01 05/03/18 11:35 Lopressor IVP 05/03/18 10:02 5 mg ONCE ONE Administration Sodium Chloride 500 ml 05/02/18 23:56 05/03/18 00:01 Normal Saline IV 500 ml PRN PRN Administration Sotalol HCl 160 mg 05/03/18 06:30 05/03/18 06:24 Betapace PO 160 mg BID [facility] Administration Vancomycin HCl 1 each 05/03/18 06:56 05/03/18 09:10 Pharmacy Consult - Vancomycin 05/03/18 06:57 1 each O ONE Administration Warfarin Sodium 3 mg 05/03/18 12:00 Coumadin PO NOON [facility] Warfarin Sodium 1 each 05/03/18 09:51 05/03/18 10:59 Pharmacy Consult - Warfarin 05/03/18 09:52 1 each O ONE Administration Warfarin Sodium 4 mg 05/03/18 12:00 05/03/18 14:04 Coumadin PO 4 mg NOON [facility] Administration Warfarin Sodium 1 mg 05/04/18 12:00 05/04/18 13:17 Coumadin PO 05/04/18 12:01 1 mg NOON [facility] Administration - Constitutional no acute distress, obese - Routine HEENT Exam Head: Present: normocephalic, atraumatic - Routine Neck Exam Present: supple, trachea midline. Absent: JVD, carotid bruit - Routine Respiratory Exam Present: decreased breath sounds. Absent: respiratory distress, rhonchi, wheezes - Routine Cardiovascular Exam Present: S1, S2, no murmur, irregular rhythm. Absent: rubs, JVD - Routine Abdominal Exam Present: soft, normoactive bowel sounds, non tender - Routine Extremities Exam Present: edema, pulses intact. Absent: cyanosis, clubbing - Routine Skin Exam Present: intact, dry, warm. Absent: cyanosis, jaundice - Routine Neurological Exam Present: alert - Routine Psychiatric Exam Present: cooperative. Absent: good judgment - Urinary Catheter Management Urethral Cath placed during this visit: yes Urethral indwelling: Yes Insertion date: 05/03/18 Insertion time: 15:30 Results 05/04/18 04:43 05/04/18 04:43 CBC 05/04/18 Range/Units 04:43 WBC 11.8 H (4.5-11.0) T/MM3 RBC 4.12 L (4.50-5.90) M/MM3 Hgb 13.3 L (13.5-17.5) GM/DL Hct 39.6 L (41-53) % Plt Count 213 (130-400) T/MM3 Neut # (Auto) 8.5 H (1.8-7.7) T/MM3 Lymph # (Auto) 1.4 (1-4.8) T/MM3 Dickinson # (Auto) 1.5 H (0-0.8) T/MM3 Eos # (Auto) 0.3 (0-0.5) T/MM3 Baso # (Auto) 0.0 (0-0.2) T/MM3 Comprehensive Metabolic Panel 05/04/18 Range/Units 04:43 Sodium 139 (136-146) MEQ/L Potassium 4.1 (3.6-5) MEQ/L Chloride 106 (98-107) MEQ/L Carbon Dioxide 23 (22-30) MEQ/L BUN 18.0 (9-20) MG/DL Creatinine 0.9 D (0.8-1.5) mg/dL Glucose 186 H (75-110) MG/DL Calcium 10.8 H (8.4-10.2) MG/DL Intake and Output 05/04/18 05/04/18 05/04/18 06:59 14:59 22:59 Intake Total 1086.667 / 4738.239 7882.750 / 1519.750 370 / 370 Output Total 1090 / 1090 670 / 670 355 / 355 Balance -3.333 / -3.333 849.750 / 849.750 Intake: IV 966.667 / 461.906 5211.750 / 1279.750 130 / 130 DiltiaZEM Drip 125 mg In Ns 125 120.00 / 120.00 114.25 / 114.25 30 / 30 ml @ 5 mls/hr IV .Q24H [facility] Rx# :[id number] Ns 1,000 ml @ 75 mls/hr IV . 350.00 / 350.00 565.5 / 565.5 [id number] VIRGIL Rx#:[id number] Piperacillin/Tazobactam 3.375 100 / 100 100 / 100 100 / 100 gm In Ns 100 ml @ 200 mls/hr IV Q6H [facility] Rx#:[id number] Vancomycin 1,500 mg In NS 500ml 396.667 / 396.667 500.000 / 500.000 500 ml @ 250 mls/hr IV 1000, 2200 VIR[facility] Rx#:[id number] Oral 120 / 120 240 / 240 240 / 240 Output: Urine Amount (Catheter) 1090 / 1090 670 / 670 355 / 355 Other: Urine Appearance Clear Urine Color Yellow Stool Color Brown Stool Consistency Soft Size of Bowel Movement Smear # Incontinent Bowel Movements 1 Weight 115.7 kg Patient Weight 05/05/18 06:59 Weight 115.7 kg - Imaging and Cardiology Echo: pending EKG results: report reviewed - EKG Interpretation EKG shows: atrial fibrillation Assessment and Plan - Assessment and Plan (1) Hypothyroidism Current visit: Yes Status: Chronic (2) Left lower lobe pneumonia Current visit: Yes Status: Acute (3) Atrial fibrillation with RVR Current visit: Yes Status: Acute (4) Mixed hyperlipidemia Current visit: Yes Status: Chronic - Assessment and Plan AFib with RVR: - Cardiazem 10 mg and 15 mg given yesterday without effectiveness - Metoprolol 5mg IV Q6h prn HR >100 - Patient received digoxin 500 mcg and 250 mcg without effectivess - Continue Cardizem gtt, HR in the 80s - 2D echo pending - TSH, Mg and K+ WNL - Takes Coumadin, INR 2.57 Hyperlipidemia - Continue Zocor 20 mg daily - Check lipids Thank you for allowing us to participate in the care of this patient. Ida Espitia APRN saw patient independently. Full assessment and plan of care verbally discussed with Dr. Hastings who is in agreement with the above. Hospital Course Summary Disclaimer: The visit summary below is not to be considered part of the above Progress Note. Hospital Course: 05/03/18 Inpatient admission to [facility] [place] for treatment of sepsis secondary to HCAP. Anticipate greater than 2 midnights of care needed. Initiate Zosyn levofloxacin and vancomycin for antimicrobial coverage. Respiratory support with O2 as needed. IVF of NS at 75cc/hr for hydration. Pharm consult for warfarin monitoring and adjustment. Tele secondary to afib. Continue with home medications, adjusting warfarin as needed. Speech eval secondary to pneumonia to help exclude aspiration. Check Phos secondary to hyperparathyroidism and hypercalcemia. Check TSH due to hypothyroidism and afib. Monitor CBC secondary to pneumonia and sepsis. Will need to monitor BMP secondary to IVF use and medications. DNR as per his requests. Care to return to Dr Parra at time of discharge from [facility]. HR increased to 130-150s. Attempted boluses of IV metoprolol and diltiazem without sustained effect. Consult placed to Dr Hastings for cardiac evaluation. Transfer to CCU for IV diltiazem drip. 05/04/18 WBC improving, less respiratory distress. Will continue Zosyn and Vancomycin for coverage - did not continue levofloxacin secondary to afib/RVR and potential need for CV meds. Continue Diltiazem drip as per cardiology to help heart rate/rhythm. Will stop IVF as taking oral well. Phos low -will start oral Phosphorus once a day with lunch. Recheck CBC in am due to pneumonia and resolving sepsis. Repeat BMP in am due to medications. Will check portable cxr in am for follow up of pneumonia. <Ab Hastings - Last Filed: 05/07/18 13:22> Exam Vital signs: Temperature 96.5 F L 05/07/18 12:00 Pulse Rate 78 05/07/18 12:00 Respiratory Rate 20 05/07/18 12:00 Blood Pressure 124/67 05/07/18 12:00 Pulse Oximetry 96 05/07/18 12:00 Inpatient Medications: Generic Name Dose Route Start Last Admin Trade Name Freq PRN Reason Stop Dose Admin Acetaminophen 650 mg 05/03/18 00:45 Tylenol PO Q4HR PRN P Al Hydroxide/Mg Hydroxide 30 ml 05/06/18 18:37 Maalox Plus PO Q3-4HR PRN Indigestion Albuterol Sulfate 2.5 mg 05/03/18 06:20 05/06/18 07:00 Proventil Neb (0.083%) AEROSOL 2.5 mg Q4H PRN Administration Bisacodyl 10 mg 05/06/18 18:37 Dulcolax RECTALLY DAILY PRN Constipation Cholecalciferol 5,000 unit 05/03/18 09:00 05/07/18 08:26 Vit. D-3 PO 5,000 unit DAILY VIRGIL Administration Fluticasone Propionate 1 spray 05/03/18 09:00 05/07/18 08:26 Flonase EA NOSTRIL 1 spray DAILY VIRGIL Administration Guaifenesin/Dextromethorphan 10 ml 05/03/18 00:45 Robitussin Dm PO Q4H PRN Cough Hydrocortisone 20 mg 05/03/18 09:00 05/07/18 08:26 Cortef PO 20 mg DAILY VIRGIL Administration Piperacillin Sod/Tazobactam 100 mls @ 200 mls/hr 05/03/18 00:45 05/07/18 08: 33 Sod 3.375 gm/ Sodium Chloride IV 200 mls/hr Q6H V[facility]GIL Administration Vancomycin HCl 1,500 mg/ 500 mls @ 250 mls/hr 05/03/18 10:00 05/07/18 09:19 Sodium Chloride IV 250 mls/hr 1000,2200 VIRGIL Administration Levothyroxine Sodium 112 mcg 05/03/18 06:30 05/07/18 06:00 Synthroid PO 112 mcg ACB VIRGIL Administration Magnesium Hydroxide 30 ml 05/06/18 18:37 Mom PO DAILY PRN Constipation Nitroglycerin 0.4 mg 05/06/18 18:37 Nitrostat SL Q5MIN3 PRN Chest pain Potassium Phosphate 1,000 mg 05/04/18 12:00 05/07/18 11:53 K-Phos Original (Urinary Acidifier) PO 1,000 mg WL VIRGIL Administration Promethazine HCl 12.5 - 25 mg 05/06/18 18:37 Phenergan Inj IVP Q6H PRN Nausea Simvastatin 20 mg 05/03/18 21:00 05/06/18 20:08 Zocor PO 20 mg HS V[facility]IL Administration Sodium Chloride 10 - 80 ml 05/02/18 22:47 05/03/18 23:04 Iv Flush IVF 20 ml PRN PRN Administration Flushing Sotalol HCl 160 mg 05/06/18 20:00 05/07/18 06:00 Betapace PO 160 mg ACBID VIRGIL Administration Warfarin Sodium 0 05/03/18 10:00 Coumadin Protocol NOTE VIRGIL Discontinued Medications Generic Name Dose Route Start Last Admin Trade Name Freq PRN Reason Stop Dose Admin Albuterol/Ipratropium 3 ml 05/02/18 22:50 05/02/18 22:58 Duoneb AEROSOL 05/02/18 22:51 3 ml O ONE Administration Digoxin 250 mcg 05/03/18 23:00 05/03/18 23:04 Lanoxin IVP 05/03/18 23:01 250 mcg O ONE Administration Digoxin 500 mcg 05/03/18 16:29 05/03/18 17:23 Lanoxin IVP 05/03/18 16:30 500 mcg O ONE Administration Diltiazem HCl 10 mg 05/03/18 13:16 05/03/18 13:34 Cardizem 25 Mg Inj IVP 05/03/18 13:17 10 mg O ONE Administration Diltiazem HCl 15 mg 05/03/18 16:06 05/03/18 16:13 Cardizem 25 Mg Inj IVP 05/03/18 16:07 15 mg O ONE Administration Sodium Chloride 1,000 mls @ 999.9 mls/hr 05/02/18 22:50 05/03/18 00:05 Normal Saline IV 05/02/18 23:49 Infused .Q1H ONE Infusion Levofloxacin/Dextrose 750 mg in 150 mls @ 100 mls/hr 05/02/18 23:52 05/03/18 01:40 Levaquin 750 Mg Premix IV 05/03/18 01:21 Infused Q24H ONE Infusion Vancomycin HCl 1,000 mg/ 250 mls @ 250 mls/hr 05/03/18 00:30 05/03/18 03:00 Sodium Chloride IV 05/03/18 00:31 Infused O ONE Infusion Sodium Chloride 1,000 mls @ 75 mls/hr 05/03/18 00:45 05/04/18 13:30 Normal Saline IV Infused .[id number] V[facility]IL Infusion Diltiazem HCl 125 mg/ Sodium 125 mls @ 5 mls/hr 05/03/18 19:00 05/05/18 10:30 Chloride IV Infused .Q24H V[facility]IL Infusion Protocol Ketorolac Tromethamine 30 mg 05/02/18 22:50 05/02/18 23:08 Toradol Inj IVP 05/02/18 22:51 30 mg O ONE Administration Metoprolol Tartrate 5 mg 05/03/18 08:23 05/03/18 09:10 Lopressor IVP 05/03/18 08:24 5 mg O ONE Administration Metoprolol Tartrate 5 mg 05/03/18 10:01 05/03/18 11:35 Lopressor IVP 05/03/18 10:02 5 mg ONCE ONE Administration Metoprolol Tartrate 5 mg 05/03/18 16:31 05/06/18 03:42 Lopressor IVP 5 mg Q6H PRN Administration Tachycardia Metoprolol Tartrate 25 mg 05/05/18 17:30 Lopressor PO BIDWM VIRGIL Metoprolol Tartrate 25 mg 05/05/18 09:50 05/06/18 07:22 Lopressor PO 25 mg BIDWM VIRGIL Administration Metoprolol Tartrate 25 mg 05/06/18 09:44 05/06/18 09:50 Lopressor PO 05/06/18 09:45 25 mg O ONE Administration Metoprolol Tartrate 50 mg 05/06/18 17:30 Lopressor PO BIDWM [facility] Sodium Chloride 500 ml 05/02/18 23:56 05/03/18 00:01 Normal Saline IV 500 ml PRN PRN Administration Sotalol HCl 160 mg 05/03/18 06:30 05/03/18 06:24 Betapace PO 160 mg BID [facility] Administration Vancomycin HCl 1 each 05/03/18 06:56 05/03/18 09:10 Pharmacy Consult - Vancomycin 05/03/18 06:57 1 each O ONE Administration Warfarin Sodium 3 mg 05/03/18 12:00 Coumadin PO NOON [facility] Warfarin Sodium 1 each 05/03/18 09:51 05/03/18 10:59 Pharmacy Consult - Warfarin 05/03/18 09:52 1 each O ONE Administration Warfarin Sodium 4 mg 05/03/18 12:00 05/03/18 14:04 Coumadin PO 4 mg NOON [facility] Administration Warfarin Sodium 1 mg 05/04/18 12:00 05/04/18 13:17 Coumadin PO 05/04/18 12:01 1 mg NOON [facility] Administration Warfarin Sodium 1 mg 05/06/18 12:00 05/06/18 12:50 Coumadin PO 05/06/18 12:30 1 mg NOON [facility] Administration Warfarin Sodium 2 mg 05/07/18 12:00 05/07/18 11:53 Coumadin PO 05/07/18 12:15 2 mg NOON [facility] Administration - Urinary Catheter Management Urethral Cath placed during this visit: no Results 05/07/18 04:28 05/07/18 04:28 CBC 05/07/18 Range/Units 04:28 WBC 12.4 H (4.5-11.0) T/MM3 RBC 4.28 L (4.50-5.90) M/MM3 Hgb 14.0 (13.5-17.5) GM/DL Hct 40.7 L (41-53) % Plt Count 308 (130-400) T/MM3 Neut # (Auto) Not performed Lymph # (Auto) Not performed Dickinson # (Auto) Not performed Eos # (Auto) Not performed Baso # (Auto) Not performed Comprehensive Metabolic Panel 05/07/18 Range/Units 04:28 Sodium 140 (136-146) MEQ/L Potassium 4.1 (3.6-5) MEQ/L Chloride 105 (98-107) MEQ/L Carbon Dioxide 27 (22-30) MEQ/L BUN 12.0 (9-20) MG/DL Creatinine 0.8 (0.8-1.5) mg/dL Glucose 112 H (75-110) MG/DL Calcium 11.1 H (8.4-10.2) MG/DL Intake and Output 05/06/18 05/07/18 05/07/18 22:59 06:59 14:59 Intake Total 1770 / 1770 720.000 / 720.000 660 / 660 Output Total 900 / 900 400 / 400 450 / 450 Balance 870 / 870 320.000 / 320.000 210 / 210 Intake: IV 200 / 200 600.000 / 600.000 Piperacillin/Tazobactam 3.375 200 / 200 100 / 100 gm In Ns 100 ml @ 200 mls/hr IV Q6H [facility] Rx#:[id number] Vancomycin 1,500 mg In NS 500ml 500.000 / 500.000 500 ml @ 250 mls/hr IV 1000, 2200 V[facility] Rx#:[id number] Oral 1570 / 1570 120 / 120 660 / 660 Output: Urine 600 / 600 400 / 400 450 / 450 Urine Amount (Catheter) 300 / 300 Other: Urine Appearance Clear Clear Clear Urine Color Yellow Pale Yellow Yellow # Voids 1 1 # Incontinent Voids 1 1 Weight 117.9 kg Patient Weight 05/08/18 06:59 Weight 117.9 kg Assessment and Plan - Assessment and Plan (1) Hypothyroidism Current visit: Yes Status: Chronic (2) Left lower lobe pneumonia Current visit: Yes Status: Acute (3) Atrial fibrillation with RVR Current visit: Yes Status: Acute (4) Mixed hyperlipidemia Current visit: Yes Status: Chronic - Attestation Attestation Narrative: I agree with the above and I am involved in the formulation of the patient's plan of care. 05/07/18 13:21 Hospital Course Summary Disclaimer: The visit summary below is not to be considered part of the above Progress Note. Addendum entered and electronically signed by Dia Espitia APRN 05/05/18 09:26: * Will stop cardizem gtt and start metoprolol 12.5 mg PO BID for rate control.
[2018-05-04] MEDS: SIMVASTATIN 20 MG TABLET PO SCH (20:36)
[2018-05-05] MEDS: PIPERACILLIN/TAZOBACTAM 3.375 GM in NS 100 ML IV SCH ×4 (03:30→20:57)
[2018-05-05] MEDS: LEVOTHYROXINE 112 MCG TABLET PO SCH ×2 (04:39→05:56)
--- NOTE | 2018-05-05 08:19 | Pharmacy Consult ---
Pharmacy Consult-Warfarin - Laboratory Information 05/03/18 05/03/18 05/04/18 07:14 07:14 04:40 Hgb 14.1 Hct 41.6 INR 1.88 H 2.57 H 05/04/18 05/05/18 05/05/18 04:43 04:44 04:44 Hgb 13.3 L 14.3 Hct 39.6 L 41.4 INR 2.93 H - Consult Information warfarin consult: day 3 67 yo M with history of atrial fibrillation and chronic anticoagulation with warfarin. home dose: Warfarin 3 mg po daily. target INR= 2.0 to 3.0. INR slightly sub-therapeutic on admission at 1.88. Date INR Dose 05/03 1.88 4 mg 05/04 2.57 1 mg 05/05 2.93 plan: no warfarin today INR has increased significantly since admission. Will give no Warfarin dose today. Drug- drug interactions exist between Warfarin and Zosyn and also warfarin and Levaquin (Levaquin was a 1 time dose) both of these interactions have the potential to increase INR and risk of bleeding. The pharmacy will continue to monitor the INR's and will adjust the Warfarin accordingly. Thank you for the Protocol, Carina Alvarado RP
[2018-05-05] MEDS: HYDROCORTISONE 20 MG TABLET PO SCH (09:22)
[2018-05-05] MEDS: FLUTICASONE NASAL SPRAY 50mcg EA NOSTRIL SCH (09:23)
--- NOTE | 2018-05-05 10:31 | Pharmacy Consult-Antibiotics ---
Pharmacy Consult-Vancomycin - Laboratory Information WBC 11.8 T/MM3 (4.5-11.0) H 05/05/18 04:44 BUN 15.0 MG/DL (9-20) 05/05/18 04:44 Creatinine 0.9 mg/dL (0.8-1.5) 05/05/18 04:44 Vancomycin Trough 14.95 ug/mL (15-20) L 05/05/18 09:31 - Consult Information VANCOMYCIN CONSULT: Vancomycin Trough = 14.95 mcg/ml. Today's SCr = 0.9 mg/dl. Will will continue Vancomycin 1,500 mg IV q12hrs. Will continue to monitor and make adjustments accordingly. Thank you.
--- NOTE | 2018-05-05 11:48 | XRay Report ---
Indication: F/U infiltrate PROCEDURE: XR chest 1V: Encounter: Initial Comparison: May 02, 2018 Findings: Airspace consolidation in the left lower lobe has improved. No new or worsening airspace opacity. No gross pleural effusion or pneumothorax. Heart size and mediastinal contours are stable. Pulmonary vascularity is unchanged. Impression: Improving left lower lobe airspace disease. .
[2018-05-05] MEDS: POTASSIUM ACID PHOSPHATE 500 MG TABLET (URINARY ACIDIFIER) PO SCH (11:56)
--- NOTE | 2018-05-05 16:28 | Progress Note ---
- Date 05/05/18 Subjective: F/U: Health Care Associated Pneumonia, Sepsis syndrome secondary to pneumonia Sitting up in chair. Doing okay. Not reporting pain with breathing or increased work of breathing. Some cough/congestion noted. No chest pain/pressure. Eating well. Not slight ab fullness. Had large stool yesterday morning but none today. Objective Vital signs: Temperature 97 F 05/05/18 12:16 Pulse Rate 93 05/05/18 16:00 Respiratory Rate 34 H 05/05/18 16:00 Blood Pressure 117/85 05/05/18 16:00 Pulse Oximetry 97 05/05/18 16:00 Height/Weight/BMI: Height 1.75 m Weight 116.5 kg Body Mass Index 36.7 - Constitutional Present: well nourished, well developed, obese, cooperative. Absent: agitated, somnolent - Routine HEENT Exam Head: Present: normocephalic, atraumatic Eye: Present: EOMI, PERRL ENT: Present: mucous membranes moist - Routine Respiratory Exam Present: decreased breath sounds, distant breath sounds, diminished air movement. Absent: respiratory distress Comments: Congested - Routine Cardiovascular Exam Present: no murmur, irregular rhythm, irregularly irregular - Routine Abdominal Exam Present: soft, non distended, non tender. Absent: normoactive bowel sounds ( Decreased) - Routine Extremities Exam Present: pulses intact. Absent: cyanosis, clubbing - Routine Neurological Exam Present: alert, CN II-XII intact, vision grossly intact, hearing grossly intact. Absent: motor deficit - Routine Psychiatric Exam Present: normal affect, cooperative. Absent: anxious, agitated Results - Labs CBC & Chem 7: 05/05/18 04:44 05/05/18 04:44 Assessment and Plan Assessment and Plan: Assessment Health Care Associated Pneumonia Sepsis secondary to pneumonia - SIRS criteria Leukocytosis with shift, tachypnea , tele elevation at [place] AFIB - RVR Warfarin anticoagulation secondary to afib HDL on statin therapy Hypothyroidism Hyperparathyroidism Hypercalcemia secondary to hyperparathyroidism Adrenal insufficiency Vit D deficiency Autism Obesity with BMI 36.8 Plan Diltiazem drip stopped this am - HR in 80 to 100. Continues on metoprolol. INR therapeutic at 2.93. Will continue Zosyn and Vancomycin for coverage - WBC, BP stable. CXR showing improvement to infiltrate. Continue bladder retraining. Will continue CCU care today - possible to medical floor tomorrow if HR stays controlled off of drip. Recheck CBC in am due to pneumonia and resolving sepsis. Repeat BMP and Phos in am due to medications. Case discussed with CCU nursing. Time spent with patient care 25 minutes. DVT Prophylaxis: Coumadin Resuscitation Status: Do Not Resuscitate - Time spent with patient Time with patient PN: 25 minutes - Physician Narrative Physician: Marcial Maria MD Narrative: Date: 05/05/18 Time: 1625 Hospital Course Summary Disclaimer: The visit summary below is not to be considered part of the above Progress Note. Hospital Course: 05/03/18 Inpatient admission to [facility] [place] for treatment of sepsis secondary to HCAP. Anticipate greater than 2 midnights of care needed. Initiate Zosyn levofloxacin and vancomycin for antimicrobial coverage. Respiratory support with O2 as needed. IVF of NS at 75cc/hr for hydration. Pharm consult for warfarin monitoring and adjustment. Tele secondary to afib. Continue with home medications, adjusting warfarin as needed. Speech eval secondary to pneumonia to help exclude aspiration. Check Phos secondary to hyperparathyroidism and hypercalcemia. Check TSH due to hypothyroidism and afib. Monitor CBC secondary to pneumonia and sepsis. Will need to monitor BMP secondary to IVF use and medications. DNR as per his requests. Care to return to Dr Parra at time of discharge from [facility]. HR increased to 130-150s. Attempted boluses of IV metoprolol and diltiazem without sustained effect. Consult placed to Dr Hastings for cardiac evaluation. Transfer to CCU for IV diltiazem drip. 05/04/18 WBC improving, less respiratory distress. Will continue Zosyn and Vancomycin for coverage - did not continue levofloxacin secondary to afib/RVR and potential need for CV meds. Continue Diltiazem drip as per cardiology to help heart rate/rhythm. Will stop IVF as taking oral well. Phos low -will start oral Phosphorus once a day with lunch. Recheck CBC in am due to pneumonia and resolving sepsis. Repeat BMP in am due to medications. Will check portable cxr in am for follow up of pneumonia. 05/05/18 Diltiazem drip stopped this am - HR in 80 to 100. Continues on metoprolol. INR therapeutic at 2.93. Will continue Zosyn and Vancomycin for coverage - WBC, BP stable. CXR showing improvement to infiltrate. Continue bladder retraining. Will continue CCU care today - possible to medical floor tomorrow if HR stays controlled off of drip.
[2018-05-05] MEDS: SIMVASTATIN 20 MG TABLET PO SCH (20:57)
[2018-05-06] MEDS: METOPROLOL 5mg/5ml INJECTION IVP PRN (03:42)
[2018-05-06] MEDS: PIPERACILLIN/TAZOBACTAM 3.375 GM in NS 100 ML IV SCH ×4 (03:43→20:08)
[2018-05-06] MEDS: LEVOTHYROXINE 112 MCG TABLET PO SCH ×2 (04:21→05:37)
[2018-05-06] MEDS: ALBUTEROL 2.5mg/3ml (0.083%) NEB AEROSOL PRN (07:00)
[2018-05-06] MEDS: HYDROCORTISONE 20 MG TABLET PO SCH ×2 (07:22→09:21)
[2018-05-06] MEDS: FLUTICASONE NASAL SPRAY 50mcg EA NOSTRIL SCH ×2 (07:23→09:20)
--- NOTE | 2018-05-06 08:11 | Pharmacy Consult ---
Pharmacy Consult-Warfarin - Laboratory Information 05/03/18 05/03/18 05/04/18 07:14 07:14 04:40 Hgb 14.1 Hct 41.6 INR 1.88 H 2.57 H 05/04/18 05/05/18 05/05/18 04:43 04:44 04:44 Hgb 13.3 L 14.3 Hct 39.6 L 41.4 INR 2.93 H 05/06/18 04:19 Hgb Hct INR 2.58 H - Consult Information INR is in target range. Warfarin 1mg is ordered for today. Will continue to monitor. Thank you.
[2018-05-06] MEDS ORDERED: WARFARIN 1 MG TABLET PO SCH (12:00)
[2018-05-06] MEDS: POTASSIUM ACID PHOSPHATE 500 MG TABLET (URINARY ACIDIFIER) PO SCH (12:50)
--- NOTE | 2018-05-06 13:26 | Cardiology Progress Note ---
<Yamile Henson M - Last Filed: 05/06/18 17:16> Subjective Principal diagnosis: Atrial Fibrillation with RVR Interval history: Bradley is seen in follow up for AFib with RVR. He is sitting up eating lunch. He denies feeling his heart beat racing, skipping or chest pain Exam Vital signs: Temperature 98.6 F 05/06/18 12:00 Pulse Rate 117 H 05/06/18 12:15 Respiratory Rate 27 H 05/06/18 12:15 Blood Pressure 106/57 05/06/18 12:01 Pulse Oximetry 93 05/06/18 12:15 Inpatient Medications: Generic Name Dose Route Start Last Admin Trade Name Freq PRN Reason Stop Dose Admin Acetaminophen 650 mg 05/03/18 00:45 Tylenol PO Q4HR PRN P Albuterol Sulfate 2.5 mg 05/03/18 06:20 05/06/18 07:00 Proventil Neb (0.083%) AEROSOL 2.5 mg Q4H PRN Administration Cholecalciferol 5,000 unit 05/03/18 09:00 05/06/18 09:20 Vit. D-3 PO Not Given DAILY [facility] Fluticasone Propionate 1 spray 05/03/18 09:00 05/06/18 09:20 Flonase EA NOSTRIL Not Given DAILY [facility] Guaifenesin/Dextromethorphan 10 ml 05/03/18 00:45 Robitussin Dm PO Q4H PRN Cough Hydrocortisone 20 mg 05/03/18 09:00 05/06/18 09:21 Cortef PO Not Given DAILY [facility] Piperacillin Sod/Tazobactam 100 mls @ 200 mls/hr 05/03/18 00:45 05/06/18 09: 21 Sod 3.375 gm/ Sodium Chloride IV Infused Q6H [facility] Infusion Vancomycin HCl 1,500 mg/ 500 mls @ 250 mls/hr 05/03/18 10:00 05/06/18 10:16 Sodium Chloride IV 250 mls/hr 1000,2200 [facility] Administration Levothyroxine Sodium 112 mcg 05/03/18 06:30 05/06/18 05:37 Synthroid PO Not Given ACB [facility] Metoprolol Tartrate 5 mg 05/03/18 16:31 05/06/18 03:42 Lopressor IVP 5 mg Q6H PRN Administration Tachycardia Metoprolol Tartrate 50 mg 05/06/18 17:30 Lopressor PO BIDWM [facility] Potassium Phosphate 1,000 mg 05/04/18 12:00 05/06/18 12:50 K-Phos Original (Urinary Acidifier) PO 1,000 mg WL [facility] Administration Simvastatin 20 mg 05/03/18 21:00 05/05/18 20:57 Zocor PO 20 mg HS [facility] Administration Sodium Chloride 10 - 80 ml 05/02/18 22:47 05/03/18 23:04 Iv Flush IVF 20 ml PRN PRN Administration Flushing Warfarin Sodium 0 05/03/18 10:00 Coumadin Protocol NOTE [facility] Discontinued Medications Generic Name Dose Route Start Last Admin Trade Name Freq PRN Reason Stop Dose Admin Albuterol/Ipratropium 3 ml 05/02/18 22:50 05/02/18 22:58 Duoneb AEROSOL 05/02/18 22:51 3 ml O ONE Administration Digoxin 250 mcg 05/03/18 23:00 05/03/18 23:04 Lanoxin IVP 05/03/18 23:01 250 mcg O ONE Administration Digoxin 500 mcg 05/03/18 16:29 05/03/18 17:23 Lanoxin IVP 05/03/18 16:30 500 mcg O ONE Administration Diltiazem HCl 10 mg 05/03/18 13:16 05/03/18 13:34 Cardizem 25 Mg Inj IVP 05/03/18 13:17 10 mg O ONE Administration Diltiazem HCl 15 mg 05/03/18 16:06 05/03/18 16:13 Cardizem 25 Mg Inj IVP 05/03/18 16:07 15 mg O ONE Administration Sodium Chloride 1,000 mls @ 999.9 mls/hr 05/02/18 22:50 05/03/18 00:05 Normal Saline IV 05/02/18 23:49 Infused .Q1H ONE Infusion Levofloxacin/Dextrose 750 mg in 150 mls @ 100 mls/hr 05/02/18 23:52 05/03/18 01:40 Levaquin 750 Mg Premix IV 05/03/18 01:21 Infused Q24H ONE Infusion Vancomycin HCl 1,000 mg/ 250 mls @ 250 mls/hr 05/03/18 00:30 05/03/18 03:00 Sodium Chloride IV 05/03/18 00:31 Infused O ONE Infusion Sodium Chloride 1,000 mls @ 75 mls/hr 05/03/18 00:45 05/04/18 13:30 Normal Saline IV Infused .[id number] [facility] Infusion Diltiazem HCl 125 mg/ Sodium 125 mls @ 5 mls/hr 05/03/18 19:00 05/05/18 10:30 Chloride IV Infused .Q24H [facility] Infusion Protocol Ketorolac Tromethamine 30 mg 05/02/18 22:50 05/02/18 23:08 Toradol Inj IVP 05/02/18 22:51 30 mg O ONE Administration Metoprolol Tartrate 5 mg 05/03/18 08:23 05/03/18 09:10 Lopressor IVP 05/03/18 08:24 5 mg O ONE Administration Metoprolol Tartrate 5 mg 05/03/18 10:01 05/03/18 11:35 Lopressor IVP 05/03/18 10:02 5 mg ONCE ONE Administration Metoprolol Tartrate 25 mg 05/05/18 17:30 Lopressor PO BIDWM [facility] Metoprolol Tartrate 25 mg 05/05/18 09:50 05/06/18 07:22 Lopressor PO 25 mg BIDWM [facility] Administration Metoprolol Tartrate 25 mg 05/06/18 09:44 05/06/18 09:50 Lopressor PO 05/06/18 09:45 25 mg O ONE Administration Sodium Chloride 500 ml 05/02/18 23:56 05/03/18 00:01 Normal Saline IV 500 ml PRN PRN Administration Sotalol HCl 160 mg 05/03/18 06:30 05/03/18 06:24 Betapace PO 160 mg BID [facility] Administration Vancomycin HCl 1 each 05/03/18 06:56 05/03/18 09:10 Pharmacy Consult - Vancomycin 05/03/18 06:57 1 each O ONE Administration Warfarin Sodium 3 mg 05/03/18 12:00 Coumadin PO NOON [facility] Warfarin Sodium 1 each 05/03/18 09:51 05/03/18 10:59 Pharmacy Consult - Warfarin 05/03/18 09:52 1 each O ONE Administration Warfarin Sodium 4 mg 05/03/18 12:00 05/03/18 14:04 Coumadin PO 4 mg NOON [facility] Administration Warfarin Sodium 1 mg 05/04/18 12:00 05/04/18 13:17 Coumadin PO 05/04/18 12:01 1 mg NOON [facility] Administration Warfarin Sodium 1 mg 05/06/18 12:00 05/06/18 12:50 Coumadin PO 05/06/18 12:30 1 mg NOON [facility] Administration - Constitutional no acute distress, obese, cooperative - Routine HEENT Exam Head: Present: normocephalic ENT: Present: mucous membranes moist - Routine Neck Exam Absent: JVD, carotid bruit - Routine Chest/Breast/Axilla Exam Chest wall: Absent: tenderness - Routine Respiratory Exam Present: CTA bilaterally, diminished air movement. Absent: rales, wheezes - Routine Cardiovascular Exam Present: tachycardia, irregularly irregular - Routine Abdominal Exam Present: soft, non tender - Routine Extremities Exam Present: edema - Routine Skin Exam Present: intact, dry, warm - Routine Neurological Exam Present: alert - Routine Psychiatric Exam Present: normal affect - Urinary Catheter Management Urethral Cath placed during this visit: yes Urethral indwelling: Yes Insertion date: 05/03/18 Insertion time: 15:30 Results 05/05/18 04:44 05/06/18 04:19 Comprehensive Metabolic Panel 05/06/18 Range/Units 04:19 Sodium 141 (136-146) MEQ/L Potassium 4.3 (3.6-5) MEQ/L Chloride 107 (98-107) MEQ/L Carbon Dioxide 24 (22-30) MEQ/L BUN 13.0 (9-20) MG/DL Creatinine 0.8 (0.8-1.5) mg/dL Glucose 151 H (75-110) MG/DL Calcium 11.1 H (8.4-10.2) MG/DL Intake and Output 05/05/18 05/06/18 05/06/18 22:59 06:59 14:59 Intake Total 913.333 / 913.333 546.667 / 546.667 500 / 500 Output Total 1255 / 1255 1300 / 1300 630 / 630 Balance -341.667 / -341.667 -753.333 / -753.333 -130 / -130 Intake: IV 253.333 / 253.333 546.667 / 546.667 100 / 100 Piperacillin/Tazobactam 3.375 200 / 200 100 / 100 100 / 100 gm In Ns 100 ml @ 200 mls/hr IV Q6H [facility] Rx#:[id number] Vancomycin 1,500 mg In NS 500ml 53.333 / 53.333 446.667 / 446.667 500 ml @ 250 mls/hr IV 1000, 2200 [facility] Rx#:[id number] Oral 660 / 660 400 / 400 Output: Urine Amount (Catheter) 1255 / 1255 1300 / 1300 630 / 630 Other: Urine Appearance Clear Clear Cloudy Urine Color Yellow Yellow Light Sugey Stool Color Brown Stool Consistency Soft Formed Size of Bowel Movement Large Weight 258 lb 2.581 oz Patient Weight 05/07/18 06:59 Weight 258 lb 2.581 oz Assessment and Plan - Assessment and Plan (1) Atrial fibrillation with RVR Current visit: Yes Status: Acute (2) Left lower lobe pneumonia Current visit: Yes Status: Acute (3) Mixed hyperlipidemia Current visit: Yes Status: Chronic (4) Hypothyroidism Current visit: Yes Status: Chronic - Assessment and Plan 05/03/18 AFib with RVR: - Cardiazem 15mg IV now (Has had 10mg dose) - Metoprolol 5mg IV Q6h prn HR >100 - Digoxin 500mcg IV now - Digoxin 250mcg IV at 2300 - 2D echo - TSH and Mag - Takes Coumadin, INR 1.88 Thank you for allowing us to participate in the care of this patient. 05/04/18 AFib with RVR: - Cardiazem 10 mg and 15 mg given yesterday without effectiveness - Metoprolol 5mg IV Q6h prn HR >100 - Patient received digoxin 500 mcg and 250 mcg without effectivess - Continue Cardizem gtt, HR in the 80s - 2D echo pending - TSH, Mg and K+ WNL - Takes Coumadin, INR 2.57 Hyperlipidemia - Continue Zocor 20 mg daily - Check lipids Thank you for allowing us to participate in the care of this patient. Ida Espitia APRN saw patient independently. Full assessment and plan of care verbally discussed with Dr. Hastings who is in agreement with the above. Will stop cardizem gtt and start metoprolol 12.5 mg PO BID for rate control. 05/06/18 NPO for synchronized DCCV Dr. Dillan Nazario is this patient's Caser according to his DPOA. Care will return to him upon discharge. Hospital Course Summary Disclaimer: The visit summary below is not to be considered part of the above Progress Note. Hospital Course: 05/03/18 Inpatient admission to [facility] for treatment of sepsis secondary to HCAP. Anticipate greater than 2 midnights of care needed. Initiate Zosyn levofloxacin and vancomycin for antimicrobial coverage. Respiratory support with O2 as needed. IVF of NS at 75cc/hr for hydration. Pharm consult for warfarin monitoring and adjustment. Tele secondary to afib. Continue with home medications, adjusting warfarin as needed. Speech eval secondary to pneumonia to help exclude aspiration. Check Phos secondary to hyperparathyroidism and hypercalcemia. Check TSH due to hypothyroidism and afib. Monitor CBC secondary to pneumonia and sepsis. Will need to monitor BMP secondary to IVF use and medications. DNR as per his requests. Care to return to Dr Parra at time of discharge from [facility]. <Sandra Nazario - Last Filed: 05/06/18 18:34> Subjective Interval history: ate lunch at 1215 no dyspnea Exam Vital signs: Temperature 97.8 F 05/06/18 15:30 Pulse Rate 129 H 05/06/18 15:58 Respiratory Rate 32 H 05/06/18 15:30 Blood Pressure 118/62 05/06/18 15:00 Pulse Oximetry 97 05/06/18 15:57 Inpatient Medications: Generic Name Dose Route Start Last Admin Trade Name Freq PRN Reason Stop Dose Admin Acetaminophen 650 mg 05/03/18 00:45 Tylenol PO Q4HR PRN P Albuterol Sulfate 2.5 mg 05/03/18 06:20 05/06/18 07:00 Proventil Neb (0.083%) AEROSOL 2.5 mg Q4H PRN Administration Cholecalciferol 5,000 unit 05/03/18 09:00 05/06/18 09:20 Vit. D-3 PO Not Given DAILY [facility]GIL Fluticasone Propionate 1 spray 05/03/18 09:00 05/06/18 09:20 Flonase EA NOSTRIL Not Given DAILY [facility] Guaifenesin/Dextromethorphan 10 ml 05/03/18 00:45 Robitussin Dm PO Q4H PRN Cough Hydrocortisone 20 mg 05/03/18 09:00 05/06/18 09:21 Cortef PO Not Given DAILY V[facility] Piperacillin Sod/Tazobactam 100 mls @ 200 mls/hr 05/03/18 00:45 05/06/18 15: 35 Sod 3.375 gm/ Sodium Chloride IV Infused Q6H [facility] Infusion Vancomycin HCl 1,500 mg/ 500 mls @ 250 mls/hr 05/03/18 10:00 05/06/18 12:16 Sodium Chloride IV Infused 1000,2200 [facility] Infusion Levothyroxine Sodium 112 mcg 05/03/18 06:30 05/06/18 05:37 Synthroid PO Not Given ACB V[facility] Metoprolol Tartrate 5 mg 05/03/18 16:31 05/06/18 03:42 Lopressor IVP 5 mg Q6H PRN Administration Tachycardia Metoprolol Tartrate 50 mg 05/06/18 17:30 Lopressor PO BIDWM [facility] Potassium Phosphate 1,000 mg 05/04/18 12:00 05/06/18 12:50 K-Phos Original (Urinary Acidifier) PO 1,000 mg WL [facility] Administration Simvastatin 20 mg 05/03/18 21:00 05/05/18 20:57 Zocor PO 20 mg HS V[facility] Administration Sodium Chloride 10 - 80 ml 05/02/18 22:47 05/03/18 23:04 Iv Flush IVF 20 ml PRN PRN Administration Flushing Warfarin Sodium 0 05/03/18 10:00 Coumadin Protocol NOTE VIRGIL Discontinued Medications Generic Name Dose Route Start Last Admin Trade Name Freq PRN Reason Stop Dose Admin Albuterol/Ipratropium 3 ml 05/02/18 22:50 05/02/18 22:58 Duoneb AEROSOL 05/02/18 22:51 3 ml O ONE Administration Digoxin 250 mcg 05/03/18 23:00 05/03/18 23:04 Lanoxin IVP 05/03/18 23:01 250 mcg O ONE Administration Digoxin 500 mcg 05/03/18 16:29 05/03/18 17:23 Lanoxin IVP 05/03/18 16:30 500 mcg O ONE Administration Diltiazem HCl 10 mg 05/03/18 13:16 05/03/18 13:34 Cardizem 25 Mg Inj IVP 05/03/18 13:17 10 mg O ONE Administration Diltiazem HCl 15 mg 05/03/18 16:06 05/03/18 16:13 Cardizem 25 Mg Inj IVP 05/03/18 16:07 15 mg O ONE Administration Sodium Chloride 1,000 mls @ 999.9 mls/hr 05/02/18 22:50 05/03/18 00:05 Normal Saline IV 05/02/18 23:49 Infused .Q1H ONE Infusion Levofloxacin/Dextrose 750 mg in 150 mls @ 100 mls/hr 05/02/18 23:52 05/03/18 01:40 Levaquin 750 Mg Premix IV 05/03/18 01:21 Infused Q24H ONE Infusion Vancomycin HCl 1,000 mg/ 250 mls @ 250 mls/hr 05/03/18 00:30 05/03/18 03:00 Sodium Chloride IV 05/03/18 00:31 Infused O ONE Infusion Sodium Chloride 1,000 mls @ 75 mls/hr 05/03/18 00:45 05/04/18 13:30 Normal Saline IV Infused .[id number] [facility] Infusion Diltiazem HCl 125 mg/ Sodium 125 mls @ 5 mls/hr 05/03/18 19:00 05/05/18 10:30 Chloride IV Infused .Q24H [facility] Infusion Protocol Ketorolac Tromethamine 30 mg 05/02/18 22:50 05/02/18 23:08 Toradol Inj IVP 05/02/18 22:51 30 mg O ONE Administration Metoprolol Tartrate 5 mg 05/03/18 08:23 05/03/18 09:10 Lopressor IVP 05/03/18 08:24 5 mg O ONE Administration Metoprolol Tartrate 5 mg 05/03/18 10:01 05/03/18 11:35 Lopressor IVP 05/03/18 10:02 5 mg ONCE ONE Administration Metoprolol Tartrate 25 mg 05/05/18 17:30 Lopressor PO BIDWM VIR[facility]IL Metoprolol Tartrate 25 mg 05/05/18 09:50 05/06/18 07:22 Lopressor PO 25 mg BIDWM VIRGIL Administration Metoprolol Tartrate 25 mg 05/06/18 09:44 05/06/18 09:50 Lopressor PO 05/06/18 09:45 25 mg O ONE Administration Sodium Chloride 500 ml 05/02/18 23:56 05/03/18 00:01 Normal Saline IV 500 ml PRN PRN Administration Sotalol HCl 160 mg 06/15/18 06:30 05/03/18 06:24 Betapace PO 160 mg BID V[facility]GIL Administration Vancomycin HCl 1 each 05/03/18 06:56 05/03/18 09:10 Pharmacy Consult - Vancomycin 05/03/18 06:57 1 each O ONE Administration Warfarin Sodium 3 mg 05/03/18 12:00 Coumadin PO NOON VIRGIL Warfarin Sodium 1 each 05/03/18 09:51 05/03/18 10:59 Pharmacy Consult - Warfarin 05/03/18 09:52 1 each O ONE Administration Warfarin Sodium 4 mg 05/03/18 12:00 05/03/18 14:04 Coumadin PO 4 mg NOON VIRGIL Administration Warfarin Sodium 1 mg 05/04/18 12:00 05/04/18 13:17 Coumadin PO 05/04/18 12:01 1 mg NOON [facility] Administration Warfarin Sodium 1 mg 05/06/18 12:00 05/06/18 12:50 Coumadin PO 05/06/18 12:30 1 mg NOON VIRGIL Administration - Routine Respiratory Exam Present: decreased breath sounds (R base) - Routine Cardiovascular Exam Present: no murmur - Routine Extremities Exam Present: edema (trace). Absent: cyanosis, clubbing - Routine Neurological Exam Present: moving all extremities. Absent: motor deficit, facial asymmetry - Routine Psychiatric Exam Present: cooperative. Absent: good insight - Urinary Catheter Management Urethral Cath placed during this visit: no Results 05/05/18 04:44 05/06/18 04:19 Comprehensive Metabolic Panel 05/06/18 Range/Units 04:19 Sodium 141 (136-146) MEQ/L Potassium 4.3 (3.6-5) MEQ/L Chloride 107 (98-107) MEQ/L Carbon Dioxide 24 (22-30) MEQ/L BUN 13.0 (9-20) MG/DL Creatinine 0.8 (0.8-1.5) mg/dL Glucose 151 H (75-110) MG/DL Calcium 11.1 H (8.4-10.2) MG/DL Intake and Output 05/06/18 05/06/18 05/06/18 06:59 14:59 22:59 Intake Total 546.667 / 527.463 2172 / 1800 900 / 900 Output Total 1300 / 1300 910 / 910 300 / 300 Balance -753.333 / -753.333 890 / 890 600 / 600 Intake: IV 546.667 / 546.667 600 / 600 100 / 100 Piperacillin/Tazobactam 3.375 100 / 100 100 / 100 100 / 100 gm In Ns 100 ml @ 200 mls/hr IV Q6H [facility] Rx#:[id number] Vancomycin 1,500 mg In NS 500ml 446.667 / 446.667 500 / 500 500 ml @ 250 mls/hr IV 1000, 2200 [facility] Rx#:[id number] Oral 1200 / 1200 800 / 800 Output: Urine Amount (Catheter) 1300 / 1300 910 / 910 300 / 300 Other: Urine Appearance Clear Cloudy Clear Urine Color Yellow Light Sugey Yellow Stool Color Brown Stool Consistency Soft Formed Size of Bowel Movement Large Weight 117.1 kg Patient Weight 05/07/18 06:59 Weight 117.1 kg - EKG Interpretation EKG: sinus rhythm (post CV SR 1st d AVB RBBB) Assessment and Plan - Assessment and Plan DPOA requested me for CV , as he s my long established patient for about 10 yrs. wrong corporate administrative assistant was consulted " thought was out of town" INR on adm. 1.88 , then therpaeutic , so advised on risks and benefits of AYDEE, and agree to proceed. about 6 hrs NPO.pt isn't diabetic. AYDEE ,only to mid esophageal level (w/o transgastric views) about 40 cm at the lip , performed then successful DC CV 200 j biphasic synch. no immediate complications. AYDEE moderate AI no JEAN clot. NL LV FX. RT on standby aggressive suctioning. HOB up 30 d to prevent aspiration. will switch back to Sotalol and cont. anticoagulation. i personally interviewed and examined pt and agree with the assessment/plan Hospital Course Summary Disclaimer: The visit summary below is not to be considered part of the above Progress Note.
--- NOTE | 2018-05-06 15:17 | Progress Note ---
- Date 05/06/18 Subjective: F/U: Health Care Associated Pneumonia, Sepsis syndrome secondary to pneumonia Doing okay today. Breathing stable-maintaining saturations on RA. Not reporting cough, congestion, or pain with breathing. NPO for possible cardioversion today. HR running 100-130s. Nursing reports patient passing large stool this morning. Tolerating bladder retraining-does feel fullness to bladder before clamp needs to be released. Objective Vital signs: Temperature 98.6 F 05/06/18 12:00 Pulse Rate 124 H 05/06/18 13:15 Respiratory Rate 41 H 05/06/18 13:15 Blood Pressure 104/58 05/06/18 13:00 Pulse Oximetry 95 05/06/18 14:11 Height/Weight/BMI: Height 1.75 m Weight 117.1 kg Body Mass Index 36.7 - Constitutional Present: well nourished, well developed, obese, cooperative. Absent: combative , agitated - Routine HEENT Exam Head: Present: normocephalic, atraumatic Eye: Present: EOMI, PERRL ENT: Present: mucous membranes moist - Routine Respiratory Exam Present: decreased breath sounds. Absent: rales, respiratory distress, rhonchi - Routine Cardiovascular Exam Present: irregular rhythm, irregularly irregular - Routine Abdominal Exam Present: soft, non distended, non tender. Absent: guarding - Routine Extremities Exam Present: edema (+2 BLE), pulses intact. Absent: cyanosis, clubbing - Routine Musculoskeletal Exam Musculoskeletal: Present: no clubbing or cyanosis - Routine Skin Exam Present: dry, warm - Routine Neurological Exam Present: alert, CN II-XII intact, moving all extremities, vision grossly intact , hearing grossly intact. Absent: motor deficit - Routine Psychiatric Exam Present: normal affect, cooperative. Absent: anxious, agitated Results - Labs CBC & Chem 7: 05/05/18 04:44 05/06/18 04:19 Assessment and Plan Assessment and Plan: Assessment Health Care Associated Pneumonia Sepsis secondary to pneumonia - SIRS criteria Leukocytosis with shift, tachypnea , tele elevation at [place] AFIB - RVR Warfarin anticoagulation secondary to afib HDL on statin therapy Hypothyroidism Hyperparathyroidism Hypercalcemia secondary to hyperparathyroidism Adrenal insufficiency Vit D deficiency Autism Obesity with BMI 36.8 Plan NPO for possible cardioversion - HR improving with medication adjustments, but still with variability. Will continue Zosyn and Vancomycin for coverage - clinically improving. Discontinue Sotomayor cath - prn bladder scans to monitor for retention. Recheck CBC in am due to pneumonia and resolving sepsis. Repeat BMP and Phos in am due to medications. Case discussed with CCU nursing. Time spent with patient care 25 minutes. DVT Prophylaxis: SCD's, Coumadin Resuscitation Status: Do Not Resuscitate - Time spent with patient Time with patient PN: 25 minutes - Physician Narrative Physician: Marcial Maria MD Narrative: Date: 05/06/18 Time: 1514 Hospital Course Summary Disclaimer: The visit summary below is not to be considered part of the above Progress Note. Hospital Course: 05/03/18 Inpatient admission to [facility] for treatment of sepsis secondary to HCAP. Anticipate greater than 2 midnights of care needed. Initiate Zosyn levofloxacin and vancomycin for antimicrobial coverage. Respiratory support with O2 as needed. IVF of NS at 75cc/hr for hydration. Pharm consult for warfarin monitoring and adjustment. Tele secondary to afib. Continue with home medications, adjusting warfarin as needed. Speech eval secondary to pneumonia to help exclude aspiration. Check Phos secondary to hyperparathyroidism and hypercalcemia. Check TSH due to hypothyroidism and afib. Monitor CBC secondary to pneumonia and sepsis. Will need to monitor BMP secondary to IVF use and medications. DNR as per his requests. Care to return to Dr Parra at time of discharge from [facility]. HR increased to 130-150s. Attempted boluses of IV metoprolol and diltiazem without sustained effect. Consult placed to Dr Hastings for cardiac evaluation. Transfer to CCU for IV diltiazem drip. 05/04/18 WBC improving, less respiratory distress. Will continue Zosyn and Vancomycin for coverage - did not continue levofloxacin secondary to afib/RVR and potential need for CV meds. Continue Diltiazem drip as per cardiology to help heart rate/rhythm. Will stop IVF as taking oral well. Phos low -will start oral Phosphorus once a day with lunch. Recheck CBC in am due to pneumonia and resolving sepsis. Repeat BMP in am due to medications. Will check portable cxr in am for follow up of pneumonia. 05/05/18 Diltiazem drip stopped this am - HR in 80 to 100. Continues on metoprolol. INR therapeutic at 2.93. Will continue Zosyn and Vancomycin for coverage - WBC, BP stable. CXR showing improvement to infiltrate. Continue bladder retraining. Will continue CCU care today - possible to medical floor tomorrow if HR stays controlled off of drip. 05/06/18 NPO for possible cardioversion - HR improving with medication adjustments, but still with variability. Will continue Zosyn and Vancomycin for coverage - clinically improving. Discontinue Sotomayor cath - prn bladder scans to monitor for retention.
--- NOTE | 2018-05-06 17:49 | Echocardiogram ---
DATE OF PROCEDURE May 03, 2018 This is a two-dimensional echo with spectral Doppler, color-flow and M-mode. It was obtained in a patient with atrial fibrillation. Left atrial dimension is normal. Left ventricular end-diastolic dimension is normal. Left ventricular wall thickness increased. LV systolic function is normal with ejection fraction of 55%. Right atrium is normal. Right ventricle is normal. Aortic root dimension is normal. Mitral valve is morphologically normal with mild mitral regurgitation. Aortic valve shows fibrocalcific changes with no stenosis. Moderate aortic insufficiency is present. Tricuspid valve shows mild tricuspid regurgitation with mild pulmonary hypertension with estimated pulmonary artery systolic pressure of 36. Pulmonary valve shows no pulmonary insufficiency. There is no pericardial effusion. IMPRESSION 1. Normal LV systolic function with ejection fraction of 55%. 2. Left ventricular hypertrophy. 3. Aortic sclerosis with moderate aortic insufficiency. 4. Mild tricuspid regurgitation with mild pulmonary hypertension with estimated pulmonary artery systolic pressure of 36. 5. Mild mitral regurgitation. MTDD
[2018-05-06] MEDS ORDERED: SALINE FLUSH 10ml SYRINGE ONE (17:51)
[2018-05-06] MEDS ORDERED: MIDAZOLAM 2mg/2ml INJECTION IVP ONE (18:35)
[2018-05-06] MEDS ORDERED: FentaNYL 100 MCG/2 ML INJECTION IVP ONE (18:35)
[2018-05-06] MEDS ORDERED: PROMETHAZINE 25 MG INJECTION IVP PRN (18:37)
[2018-05-06] MEDS ORDERED: MAG-AL + SIM ORAL LIQUID 30ml PO PRN (18:37)
[2018-05-06] MEDS ORDERED: NITROGLYCERIN 0.4 MG SUBLINGUAL TABLET SL PRN (18:37)
[2018-05-06] MEDS ORDERED: BISACODYL 10 MG SUPPOSITORY RECTALLY PRN (18:37)
[2018-05-06] MEDS: SOTALOL 80 MG TABLET PO SCH (20:08)
[2018-05-06] MEDS: SIMVASTATIN 20 MG TABLET PO SCH (20:08)
[2018-05-07] MEDS: PIPERACILLIN/TAZOBACTAM 3.375 GM in NS 100 ML IV SCH ×4 (03:03→20:26)
[2018-05-07] MEDS: LEVOTHYROXINE 112 MCG TABLET PO SCH (06:00)
[2018-05-07] MEDS: SOTALOL 80 MG TABLET PO SCH ×2 (06:00→18:13)
--- NOTE | 2018-05-07 08:04 | Pharmacy Consult ---
Pharmacy Consult-Warfarin - Laboratory Information 05/03/18 05/03/18 05/04/18 07:14 07:14 04:40 Hgb 14.1 Hct 41.6 INR 1.88 H 2.57 H 05/04/18 05/05/18 05/05/18 04:43 04:44 04:44 Hgb 13.3 L 14.3 Hct 39.6 L 41.4 INR 2.93 H 05/06/18 05/07/18 05/07/18 04:19 04:28 04:28 Hgb 14.0 Hct 40.7 L INR 2.58 H 1.96 H - Consult Information INR fell to 1.96. Bridge therapy not needed but will increase today's dose of warfarin to 2mg. Thanks
[2018-05-07] MEDS: HYDROCORTISONE 20 MG TABLET PO SCH (08:26)
[2018-05-07] MEDS: FLUTICASONE NASAL SPRAY 50mcg EA NOSTRIL SCH (08:26)
--- NOTE | 2018-05-07 10:56 | Progress Note ---
- Date 05/07/18 Subjective: Pt feeling well per his report. About at baseline mental status per his brother. No N/V/F/C/CP. Was able to be weaned off O2 yesterday. DCCV yesterday, has remained in NSR since then. Objective Vital signs: Temperature 98.2 F 05/07/18 07:30 Pulse Rate 78 05/07/18 10:00 Respiratory Rate 29 H 05/07/18 10:00 Blood Pressure 135/78 05/07/18 09:31 Pulse Oximetry 94 05/07/18 10:00 Height/Weight/BMI: Height 5 ft 9 in Weight 117.1 kg Body Mass Index 36.7 - Constitutional Present: no acute distress, well developed - Routine HEENT Exam Head: Present: normocephalic, atraumatic Eye: Present: EOMI, PERRL ENT: Present: mucous membranes moist, oropharynx clear, external ear normal - Routine Respiratory Exam Present: rales (LLL coarse breath sounds.). Absent: wheezes, crackles - Routine Cardiovascular Exam Present: RRR. Absent: murmur, gallop, rubs - Routine Abdominal Exam Present: soft, normoactive bowel sounds, non distended, non tender. Absent: organomegaly - Routine Extremities Exam Present: edema (Mild BLE edema. ), full ROM, normal capillary refill. Absent: cyanosis - Routine Skin Exam Present: intact, dry. Absent: jaundice, rash - Routine Neurological Exam Present: alert, CN II-XII intact, moving all extremities (5/5 strength). Absent : oriented X3 - Routine Psychiatric Exam Present: normal affect. Absent: depressed, anxious Results - Labs CBC & Chem 7: 05/07/18 04:28 05/07/18 04:28 Assessment and Plan Assessment and Plan: Assessment Health Care Associated Pneumonia Sepsis secondary to pneumonia - SIRS criteria Leukocytosis with shift, tachypnea , tele elevation at GA AFIB - RVR Warfarin anticoagulation secondary to afib HDL on statin therapy Hypothyroidism Hyperparathyroidism Hypercalcemia secondary to hyperparathyroidism Adrenal insufficiency Vit D deficiency Autism Obesity with BMI 36.8 Plan Sepsis: Due to PNA. See below. HCAP: Bibasilar, L>R. Stop vanco, cont zosyn for now. Weaned off O2 this am. Likely discharge on omnicef once stable for dismissal. Afib with RVR: S/p DCCV 05/06. Remains in NRS. Cont sotalol. Cont coumadin, INR 2.0. Vit D deficiency: Cont vitamin D. Adrenal insuff: Cont home hydrocortisone. Hypothyroidism: Cont home synthroid. FEN: Gen diet. Proph: Lovenox. Dispo: Transfer to floor. Likely dismiss to facility in 1-2 days. - Physician Narrative Narrative: Date: 05/07/18 Time: 1053 Hospital Course Summary Disclaimer: The visit summary below is not to be considered part of the above Progress Note. Hospital Course: 05/03/18 Inpatient admission to [facility] for treatment of sepsis secondary to HCAP. Anticipate greater than 2 midnights of care needed. Initiate Zosyn levofloxacin and vancomycin for antimicrobial coverage. Respiratory support with O2 as needed. IVF of NS at 75cc/hr for hydration. Pharm consult for warfarin monitoring and adjustment. Tele secondary to afib. Continue with home medications, adjusting warfarin as needed. Speech eval secondary to pneumonia to help exclude aspiration. Check Phos secondary to hyperparathyroidism and hypercalcemia. Check TSH due to hypothyroidism and afib. Monitor CBC secondary to pneumonia and sepsis. Will need to monitor BMP secondary to IVF use and medications. DNR as per his requests. Care to return to Dr Parra at time of discharge from [facility].
[2018-05-07] MEDS: POTASSIUM ACID PHOSPHATE 500 MG TABLET (URINARY ACIDIFIER) PO SCH (11:53)
[2018-05-07] MEDS ORDERED: WARFARIN 2 MG TABLET PO SCH (12:00)
--- NOTE | 2018-05-07 12:58 | Cardiology Progress Note ---
Subjective Principal diagnosis: Atrial Fibrillation with RVR Interval history: no complaints denies chest pain or dyspnea. Remains on room air this morning, although did go on a BiPAP last night following sedation. No complaints or issues per nursing staff. Exam Vital signs: Temperature 96.5 F L 05/07/18 12:00 Pulse Rate 78 05/07/18 12:00 Respiratory Rate 20 05/07/18 12:00 Blood Pressure 124/67 05/07/18 12:00 Pulse Oximetry 96 05/07/18 12:00 Inpatient Medications: Generic Name Dose Route Start Last Admin Trade Name Freq PRN Reason Stop Dose Admin Acetaminophen 650 mg 05/03/18 00:45 Tylenol PO Q4HR PRN P Al Hydroxide/Mg Hydroxide 30 ml 05/06/18 18:37 Maalox Plus PO Q3-4HR PRN Indigestion Albuterol Sulfate 2.5 mg 05/03/18 06:20 05/06/18 07:00 Proventil Neb (0.083%) AEROSOL 2.5 mg Q4H PRN Administration Bisacodyl 10 mg 05/06/18 18:37 Dulcolax RECTALLY DAILY PRN Constipation Cholecalciferol 5,000 unit 05/03/18 09:00 05/07/18 08:26 Vit. D-3 PO 5,000 unit DAILY VIRGIL Administration Fluticasone Propionate 1 spray 05/03/18 09:00 05/07/18 08:26 Flonase EA NOSTRIL 1 spray DAILY VIRGIL Administration Guaifenesin/Dextromethorphan 10 ml 05/03/18 00:45 Robitussin Dm PO Q4H PRN Cough Hydrocortisone 20 mg 05/03/18 09:00 05/07/18 08:26 Cortef PO 20 mg DAILY VIRGIL Administration Piperacillin Sod/Tazobactam 100 mls @ 200 mls/hr 05/03/18 00:45 05/07/18 08: 33 Sod 3.375 gm/ Sodium Chloride IV 200 mls/hr Q6H VIRGIL Administration Vancomycin HCl 1,500 mg/ 500 mls @ 250 mls/hr 05/03/18 10:00 05/07/18 09:19 Sodium Chloride IV 250 mls/hr 1000,2200 VIRGIL Administration Levothyroxine Sodium 112 mcg 05/03/18 06:30 05/07/18 06:00 Synthroid PO 112 mcg ACB VIRGIL Administration Magnesium Hydroxide 30 ml 05/06/18 18:37 Mom PO DAILY PRN Constipation Nitroglycerin 0.4 mg 05/06/18 18:37 Nitrostat SL Q5MIN3 PRN Chest pain Potassium Phosphate 1,000 mg 05/04/18 12:00 05/07/18 11:53 K-Phos Original (Urinary Acidifier) PO 1,000 mg WL VIRGIL Administration Promethazine HCl 12.5 - 25 mg 05/06/18 18:37 Phenergan Inj IVP Q6H PRN Nausea Simvastatin 20 mg 05/03/18 21:00 05/06/18 20:08 Zocor PO 20 mg HS VIRGIL Administration Sodium Chloride 10 - 80 ml 05/02/18 22:47 05/03/18 23:04 Iv Flush IVF 20 ml PRN PRN Administration Flushing Sotalol HCl 160 mg 05/06/18 20:00 05/07/18 06:00 Betapace PO 160 mg ACBID VIRGIL Administration Warfarin Sodium 0 05/03/18 10:00 Coumadin Protocol NOTE VIRGIL Discontinued Medications Generic Name Dose Route Start Last Admin Trade Name Freq PRN Reason Stop Dose Admin Albuterol/Ipratropium 3 ml 05/02/18 22:50 05/02/18 22:58 Duoneb AEROSOL 05/02/18 22:51 3 ml O ONE Administration Digoxin 250 mcg 05/03/18 23:00 05/03/18 23:04 Lanoxin IVP 05/03/18 23:01 250 mcg O ONE Administration Digoxin 500 mcg 05/03/18 16:29 05/03/18 17:23 Lanoxin IVP 05/03/18 16:30 500 mcg O ONE Administration Diltiazem HCl 10 mg 05/03/18 13:16 05/03/18 13:34 Cardizem 25 Mg Inj IVP 05/03/18 13:17 10 mg O ONE Administration Diltiazem HCl 15 mg 05/03/18 16:06 05/03/18 16:13 Cardizem 25 Mg Inj IVP 05/03/18 16:07 15 mg O ONE Administration Sodium Chloride 1,000 mls @ 999.9 mls/hr 05/02/18 22:50 05/03/18 00:05 Normal Saline IV 05/02/18 23:49 Infused .Q1H ONE Infusion Levofloxacin/Dextrose 750 mg in 150 mls @ 100 mls/hr 05/02/18 23:52 05/03/18 01:40 Levaquin 750 Mg Premix IV 05/03/18 01:21 Infused Q24H ONE Infusion Vancomycin HCl 1,000 mg/ 250 mls @ 250 mls/hr 05/03/18 00:30 05/03/18 03:00 Sodium Chloride IV 05/03/18 00:31 Infused O ONE Infusion Sodium Chloride 1,000 mls @ 75 mls/hr 05/03/18 00:45 05/04/18 13:30 Normal Saline IV Infused .[id number] VIRGIL Infusion Diltiazem HCl 125 mg/ Sodium 125 mls @ 5 mls/hr 05/03/18 19:00 05/05/18 10:30 Chloride IV Infused .Q24H VIRGIL Infusion Protocol Ketorolac Tromethamine 30 mg 05/02/18 22:50 05/02/18 23:08 Toradol Inj IVP 05/02/18 22:51 30 mg O ONE Administration Metoprolol Tartrate 5 mg 05/03/18 08:23 05/03/18 09:10 Lopressor IVP 05/03/18 08:24 5 mg O ONE Administration Metoprolol Tartrate 5 mg 05/03/18 10:01 05/03/18 11:35 Lopressor IVP 05/03/18 10:02 5 mg ONCE ONE Administration Metoprolol Tartrate 5 mg 05/03/18 16:31 05/06/18 03:42 Lopressor IVP 5 mg Q6H PRN Administration Tachycardia Metoprolol Tartrate 25 mg 05/05/18 17:30 Lopressor PO BIDWM VIRGIL Metoprolol Tartrate 25 mg 05/05/18 09:50 05/06/18 07:22 Lopressor PO 25 mg BIDWM VIRGIL Administration Metoprolol Tartrate 25 mg 05/06/18 09:44 05/06/18 09:50 Lopressor PO 05/06/18 09:45 25 mg O ONE Administration Metoprolol Tartrate 50 mg 05/06/18 17:30 Lopressor PO BIDWM VIRGIL Sodium Chloride 500 ml 05/02/18 23:56 05/03/18 00:01 Normal Saline IV 500 ml PRN PRN Administration Sotalol HCl 160 mg 05/03/18 06:30 05/03/18 06:24 Betapace PO 160 mg BID VIRGIL Administration Vancomycin HCl 1 each 05/03/18 06:56 05/03/18 09:10 Pharmacy Consult - Vancomycin 05/03/18 06:57 1 each O ONE Administration Warfarin Sodium 3 mg 05/03/18 12:00 Coumadin PO NOON VIRGIL Warfarin Sodium 1 each 05/03/18 09:51 05/03/18 10:59 Pharmacy Consult - Warfarin 05/03/18 09:52 1 each O ONE Administration Warfarin Sodium 4 mg 05/03/18 12:00 05/03/18 14:04 Coumadin PO 4 mg NOON VIRGIL Administration Warfarin Sodium 1 mg 05/04/18 12:00 05/04/18 13:17 Coumadin PO 05/04/18 12:01 1 mg NOON VIRGIL Administration Warfarin Sodium 1 mg 05/06/18 12:00 05/06/18 12:50 Coumadin PO 05/06/18 12:30 1 mg NOON VIRGIL Administration Warfarin Sodium 2 mg 05/07/18 12:00 05/07/18 11:53 Coumadin PO 05/07/18 12:15 2 mg NOON VIRGIL Administration - Constitutional no acute distress - Routine HEENT Exam Head: Present: normocephalic, atraumatic Eye: Present: EOMI ENT: Present: mucous membranes dry - Routine Neck Exam Present: normal carotid upstroke. Absent: JVD, carotid bruit, lymphadenopathy, thyromegaly - Routine Respiratory Exam Present: CTA bilaterally, diminished air movement - Routine Cardiovascular Exam Present: RRR, no murmur. Absent: bradycardia, tachycardia - Routine Abdominal Exam Present: soft, normoactive bowel sounds, non distended, non tender. Absent: distended, organomegaly, mass - Routine Extremities Exam Present: edema (trace ankle), pulses intact, normal capillary refill. Absent: cyanosis, clubbing, extremity cold to touch - Routine Skin Exam Present: intact. Absent: cyanosis, erythema - Routine Neurological Exam Present: alert, CN II-XII intact, moving all extremities, vision grossly intact , hearing grossly intact, normal speech (at baseline for this patient with autism). Absent: motor deficit, hemineglect, facial asymmetry - Routine Psychiatric Exam Present: normal affect (Baseline), cooperative - Urinary Catheter Management Urethral Cath placed during this visit: yes, but has since been removed by the nurse Urethral indwelling: Yes Insertion date: 05/03/18 Insertion time: 15:30 Removal date: 05/06/18 Removal time: 15:37 Results 05/07/18 04:28 05/07/18 04:28 CBC 05/07/18 Range/Units 04:28 WBC 12.4 H (4.5-11.0) T/MM3 RBC 4.28 L (4.50-5.90) M/MM3 Hgb 14.0 (13.5-17.5) GM/DL Hct 40.7 L (41-53) % Plt Count 308 (130-400) T/MM3 Neut # (Auto) Not performed Lymph # (Auto) Not performed Mcpherson # (Auto) Not performed Eos # (Auto) Not performed Baso # (Auto) Not performed Comprehensive Metabolic Panel 05/07/18 Range/Units 04:28 Sodium 140 (136-146) MEQ/L Potassium 4.1 (3.6-5) MEQ/L Chloride 105 (98-107) MEQ/L Carbon Dioxide 27 (22-30) MEQ/L BUN 12.0 (9-20) MG/DL Creatinine 0.8 (0.8-1.5) mg/dL Glucose 112 H (75-110) MG/DL Calcium 11.1 H (8.4-10.2) MG/DL Intake and Output 05/06/18 05/07/18 05/07/18 22:59 06:59 14:59 Intake Total 1770 / 1770 720.000 / 720.000 420 / 420 Output Total 900 / 900 400 / 400 450 / 450 Balance 870 / 870 320.000 / 320.000 -30 / -30 Intake: IV 200 / 200 600.000 / 600.000 Piperacillin/Tazobactam 3.375 200 / 200 100 / 100 gm In Ns 100 ml @ 200 mls/hr IV Q6H VIRGIL Rx#:[id number] Vancomycin 1,500 mg In NS 500ml 500.000 / 500.000 500 ml @ 250 mls/hr IV 1000, 2200 VIRGIL Rx#:[id number] Oral 1570 / 1570 120 / 120 420 / 420 Output: Urine 600 / 600 400 / 400 450 / 450 Urine Amount (Catheter) 300 / 300 Other: Urine Appearance Clear Clear Clear Urine Color Yellow Pale Yellow Yellow # Voids 1 1 # Incontinent Voids 1 1 Weight 117.9 kg Patient Weight 05/08/18 06:59 Weight 117.9 kg - EKG Interpretation EKG: sinus rhythm (telemetry shows a normal sinus rhythm in the 80s with normal QT interval), no acute changes Assessment and Plan - Assessment and Plan Recurrent atrial fibrillation status post AYDEE cardioversion doing well on his usual doses of warfarin and sotalol Moderate aortic regurgitation RBBB with first-degree AV block Stable from cardiac standpoint We'll sign off at this time, Please call if you have a cardiovascular concerns Follow-up in the office as previously scheduled. Gen. follow-up with primary care Hospital Course Summary Disclaimer: The visit summary below is not to be considered part of the above Progress Note. Hospital Course: 05/03/18 Inpatient admission to [facility] [place] of sepsis secondary to HCAP. Anticipate greater than 2 midnights of care needed. Initiate Zosyn levofloxacin and vancomycin for antimicrobial coverage. Respiratory support with O2 as needed. IVF of NS at 75cc/hr for hydration. Pharm consult for warfarin monitoring and adjustment. Tele secondary to afib. Continue with home medications, adjusting warfarin as needed. Speech eval secondary to pneumonia to help exclude aspiration. Check Phos secondary to hyperparathyroidism and hypercalcemia. Check TSH due to hypothyroidism and afib. Monitor CBC secondary to pneumonia and sepsis. Will need to monitor BMP secondary to IVF use and medications. DNR as per his requests. Care to return to Dr Parra at time of discharge from [facility].
[2018-05-07] MEDS ORDERED: ALBUTEROL 2.5mg/3ml (0.083%) NEB AEROSOL PRN (15:34)
[2018-05-07] MEDS: SALINE FLUSH 10ml SYRINGE IVF PRN (15:38)
[2018-05-07] MEDS: SIMVASTATIN 20 MG TABLET PO SCH (20:26)
[2018-05-08] MEDS: PIPERACILLIN/TAZOBACTAM 3.375 GM in NS 100 ML IV SCH ×2 (03:32→09:16)
[2018-05-08] MEDS: LEVOTHYROXINE 112 MCG TABLET PO SCH (06:33)
[2018-05-08] MEDS: SOTALOL 80 MG TABLET PO SCH (06:33)
--- NOTE | 2018-05-08 07:35 | Pharmacy Consult ---
Pharmacy Consult-Warfarin - Laboratory Information 05/03/18 05/03/18 05/04/18 07:14 07:14 04:40 Hgb 14.1 Hct 41.6 INR 1.88 H 2.57 H 05/04/18 05/05/18 05/05/18 04:43 04:44 04:44 Hgb 13.3 L 14.3 Hct 39.6 L 41.4 INR 2.93 H 05/06/18 05/07/18 05/07/18 04:19 04:28 04:28 Hgb 14.0 Hct 40.7 L INR 2.58 H 1.96 H 05/08/18 05/08/18 04:30 04:30 Hgb 14.0 Hct 40.8 L INR 1.83 H - Consult Information We will dose warfarin at 3mg po today after another drop in the INR. I do recommend bridge therapy with enoxaparin as the INR is out of range for the second day. Enoxaparin 120mg bid x 2 doses should be acceptable. Recheck INR in a.m. to determine course of therapy. Thanks
[2018-05-08] MEDS: FLUTICASONE NASAL SPRAY 50mcg EA NOSTRIL SCH (09:15)
[2018-05-08] MEDS: HYDROCORTISONE 20 MG TABLET PO SCH (09:15)
[2018-05-08 11:50] VITALS: BP 139/69; PULSE 85; RESP 20; TEMP 97.2; O2SAT 96
[2018-05-08] MEDS ORDERED: WARFARIN 4 MG TABLET PO SCH (12:00)
[2018-05-08] MEDS ORDERED: WARFARIN 3 MG TABLET PO SCH (12:00)
--- NOTE | 2018-05-08 13:27 | Extended Care Facility Orders ---
Admission Orders Admit to:: Prison Allergies/Adverse Reactions: Allergies No Known Drug Allergies Allergy (Unknown, Verified 05/02/18 23:23) Admitting Diagnosis: LLL pnemonia Admitting Physician: Enrico Schwarz MD Attending Physician: Enrico Schwarz MD Code Status: Do Not Resuscitate Anticiapted Length of Stay: 30 days or less Rehab Potential: fair Rehab Prognosis: fair Diet: 05/07/18 Breakfast Cardiac Diet [DIET] Sodium Restriction: 2GRAM Fat Content: LOW May use Facility Protocol or Standing Orders: Yes May have flu vaccine: Yes Evaluations/Treatment: PT, OT Prison Certification: I certify that SNF services are required to be given on an Inpatient basis because of the patients need for jail care on a continuing basis for the condition(s) for which he/she received inpatient hospital services prior to his/her transfer to the SNF. SNF inpatient care is necessary for the following reasons Indication for Prison: Other (PT/OT) - Additional Information In Event of Arrest: Do Not Start CPR Referrals: Hair Parra MD [Primary Care Provider] - 1 Week Additional Orders: Cm talked with pt he does not understand dc plans r/t autism.
--- NOTE | 2018-05-08 17:10 | Discharge Summary ---
Discharge Information Date of admission: 05/03/18 00:39 Attending Physician: Enrico Schwarz MD Primary care physician: Hair Parra MD Consults: 05/03/18 16:00 Physician Consult [CONS] Routine Consulting Provider: Ab Hastings Reason For Exam: afib with RVR Ordering Provider has Notified District Service Manager: Yes Comment: Yamile notified 05/03/18 16:02 Doctor [Physician Consult] [CONS] Routine Consulting Provider: Niranjan Dong Reason For Exam: CONTINUED CARE Ordering Provider has Notified District Service Manager: Yes 05/08/18 12:49 Doctor [Physician Consult] [CONS] Routine Consulting Provider: Niranjan Dong Reason For Exam: continued care Ordering Provider has Notified District Service Manager: Yes - Discharge Diagnosis (1) Left lower lobe pneumonia Status: Acute (2) Atrial fibrillation with RVR Status: Acute (3) Mixed hyperlipidemia Status: Chronic (4) Hyperparathyroidism Status: Chronic (5) Vitamin D deficiency Status: Chronic (6) Hypothyroidism Status: Chronic (7) Adrenal insufficiency Status: Chronic (8) Obesity (BMI 30-39.9) Status: Chronic - Procedures Procedures: None - Laboratory Labs: 05/08/18 04:30 05/08/18 04:30 - Microbiology None - Radiology Radiology: Date of Exam: 05/05/18 Type of Exam(s): XR chest 1V Reason for Exam(s): F/U infiltrate Indication: F/U infiltrate Comparison: May 02, 2018 Findings: Airspace consolidation in the left lower lobe has improved. No new or worsening airspace opacity. No gross pleural effusion or pneumothorax. Heart size and mediastinal contours are stable. Pulmonary vascularity is unchanged. Impression: Improving left lower lobe airspace disease. - Pathology None History of Present Illness HPI: 67 y/o w/ h/o PAF, hypothyroid, Autism, HLD comes to ER from [place] w/ couple of day h/o cough, fevers, sweats, tachypnea. Patient was seen earlier in the day by his primary doctor, and was thought to have a probable pneumonia. No testing or x-rays were done, and they could not arrange to get the patient started on Levaquin 750 mg daily until tomorrow. Patient lives at a full nursing facility. Tonight the patient seemed worse, with fevers up to 102, increasing malaise, and increasing cough with mild decreased O2 saturations at 91%. Patient has no primary pulmonary diagnoses or treatments. Patient denies CP, dyspnea, ADAMS, dysphagia, n/v/d and change in bowel/bladder function. IN ER patient had CXR concerning for LLL pneumonia and possible RML pneumonia. Patient had elevated WBC of 16.6 and was started on Levaquin IV 750mg x one and Vancomycin 1gram IV x one and IVFs. Patient also had DuoNeb treatment and current O2 sats reported at 93-94% on RA. Patient's lactic acid was 1.3, calcium 11.6 but otherwise remainder of labs WNL Patient given Toradol, acetaminophen in addition to the abx Patient admitted to the Hospitalist service for further evaluation and treatment. Objective Vital signs: Temperature 97.2 F 05/08/18 11:48 Pulse Rate 85 05/08/18 11:48 Respiratory Rate 20 05/08/18 11:48 Blood Pressure 139/69 05/08/18 11:48 Pulse Oximetry 96 05/08/18 11:48 Height/Weight/BMI: Height 5 ft 9 in Weight 117.9 kg Body Mass Index 36.7 - Constitutional Present: no acute distress, well developed - Routine HEENT Exam Head: Present: normocephalic, atraumatic Eye: Present: EOMI, PERRL ENT: Present: mucous membranes moist, oropharynx clear, external ear normal - Routine Respiratory Exam Present: rales (Coarse breath sounds left base. ). Absent: wheezes, crackles - Routine Cardiovascular Exam Present: RRR. Absent: murmur, gallop, rubs - Routine Abdominal Exam Present: soft, normoactive bowel sounds, non distended, non tender. Absent: organomegaly - Routine Extremities Exam Present: full ROM, normal capillary refill. Absent: cyanosis, edema - Routine Skin Exam Present: intact, dry. Absent: jaundice, rash - Routine Neurological Exam Present: alert (At baseline mental status, which is altered due to his autism. ) , moving all extremities (5/5 strength). Absent: altered mental status - Routine Psychiatric Exam Absent: depressed, anxious Hospital Course This is a general summary of the patient's hospital course. For more details refer to the complete medical record. Sepsis: Due to PNA. Pt was given gentle IVF. Sepsis resolved. HCAP: Bibasilar, L>R. Pt was initially placed on vanco and zosyn. After cultures didn't grow MRSA, stopped vanco. Zosyn was continued until the time of discharge. Pt was able to be weaned off O2, and was dismissed with a 2 day course of omnicef to complete a 7 day course of antibiotics. Afib with RVR: S/p DCCV 05/06. Remains in NRS. Cont sotalol. Cont coumadin, home dose of 3mg daily. Vit D deficiency: Cont vitamin D. Adrenal insuff: Pt was continued on home hydrocortisone. Hypothyroidism: Continued on home synthroid. Hospital course: 05/03/18 Inpatient admission to [facility] for treatment of sepsis secondary to HCAP. Anticipate greater than 2 midnights of care needed. Initiate Zosyn levofloxacin and vancomycin for antimicrobial coverage. Respiratory support with O2 as needed. IVF of NS at 75cc/hr for hydration. Pharm consult for warfarin monitoring and adjustment. Tele secondary to afib. Continue with home medications, adjusting warfarin as needed. Speech eval secondary to pneumonia to help exclude aspiration. Check Phos secondary to hyperparathyroidism and hypercalcemia. Check TSH due to hypothyroidism and afib. Monitor CBC secondary to pneumonia and sepsis. Will need to monitor BMP secondary to IVF use and medications. DNR as per his requests. Care to return to Dr Parra at time of discharge from [facility]. Discharge Plan - Discharge Disposition Discharge Date: 05/08/18 Disposition: 03 To SNU Not [facility] (SNF) *Condition: Stable Reason For Visit (Visit label in EMR): LLL pnemonia - Discharge Medications *Discharge Medications: New Cefdinir 300 mg PO BID 2 Days #4 cap Albuterol Neb (0.083%) [Proventil Neb (0.083%)] 2.5 mg AEROSOL RTQID PRN #30 each PRN Reason: Wheezing Continue Simvastatin 20 mg PO HS #0 Acetaminophen 650 mg PO Q4HR PRN #0 PRN Reason: PAIN Fluticasone Nasal [place] [Flonase] 1 spray REINALDO DAILY #0 Sotalol HCl [Sotalol] 160 mg PO BID #0 Naproxen 1 tab PO BID PRN PRN Reason: Pain Cholecalciferol [Vit. D-3] 5,000 unit PO DAILY #0 Guaifenesin/Dextromethorphan [Guaifenesin Dm Syrup] 10 ml PO Q4H PRN PRN Reason: Cough warfarin 3 mg tablet 3 mg PO DAILY tab levothyroxine 112 mcg tablet 112 mcg PO QAM #90 tab Cortef (Hydrocortisone) 20 mg tablet 20 mg PO DAILY #30 tab Discontinued Levofloxacin [Levaquin] 1 tab PO DAILY - Discharge Packet/Instructions *Diet: [id number] ADA *Activity: As tolerated *Pain Management/Treatment: Tylenol 650mg every 5 hours as needed. *Wound Care: N/A *Expected Signs/Symptoms: Mild soreness in the throat or mild difficulty swallowing for 2-3 days. *Notify Physician if: Severe difficulty swallowing, severe chest pain, shortness of breath, fever, new persistent cough, phlegm production or throwing up blood. *During Business Hours Contact: *After Business Hours Contact: *Pending Lab/Results: No Pending Lab - Referrals/Follow Up *Referrals/Follow Up: Hair Parra MD [Primary Care Provider] - 1 Week - Patient Handouts Patient Handouts: Pneumonia (GEN) - Dismissal Complete Discharge Instructions are:: Complete Physician Narrative - Narrative Attestation Narrative: Date: 05/08/18 Time: 1296
--- NOTE | 2018-05-09 11:21 | Transesophageal Echocardiogram ---
DATE OF PROCEDURE 05/06/2018 INDICATION Recurrent atrial fibrillation. Patient's INR on admission was 1.88, subsequently therapeutic. Outpatient recent INRs are not available. Patient has been NPO for about six hours. He is not diabetic. DPOA counseled on the role of cardioversion and AYDEE. I offered them to reschedule the following day; they were in agreement to proceed and voiced strong preference to proceed this evening. PROCEDURE PERFORMED 1. Transesophageal echocardiogram. 2. DC cardioversion. 3. Moderate conscious sedation, time of approximately 30 minutes. DESCRIPTION OF PROCEDURE Patient was in CCU, received IV sedation with Versed and Fentanyl given by independent staff. Please see the separate reports. Cetacaine [place] to the oropharynx was applied. I advance the Omniprobe down to the mid and lower esophagus but not to the stomach. This was followed by successful DC cardioversion at 200 joules biphasic synchronized. There were no immediate complications. FINDINGS 1. CARDIAC CHAMBERS. Left atrium appears enlarged. Other cardiac chambers are normal in size. 2. LV FUNCTION. Analysis reveals borderline LVH, normal systolic function, normal ejection fraction. 3. Interatrial septum appears intact. No evidence of shunts on color flow Doppler. 4. VALVES. Aortic valve exhibits a trileaflet structure, very minimal sclerosis is present. Tricuspid and pulmonic valves structure and motion appear normal. Normal valve excursion. Mitral valve leaflets exhibit mild sclerotic changes and possible mild prolapse. 4. DOPPLER. Doppler shows very mild mitral regurgitation, at least moderate aortic regurgitation is present. Very mild tricuspid regurgitation. 5. Careful look at the left atrial appendage demonstrated atrial fibrillation with flow velocity ranging between 40 and 80 cm/second. No demonstrable clot or smoke sign. 6. LV size and contractility appear normal. Ejection fraction is estimated at 70%. 7. Visualized portion of thoracic aorta exhibits no dissection, aneurysm or mobile atheroma. IMPRESSION 1. Left atrial enlargement. 2. Borderline LVH with normal systolic function. EF of 65-70%. 3. At least moderate aortic regurgitation (2-3+). 4. Mild mitral regurgitation. 5. Mild mitral valve prolapse. 6. Mild tricuspid regurgitation. 7. No evidence of left atrial/left atrial appendageal clot. May proceed with DC cardioversion. 8. Transgastric views were not obtained. 9. Successful DC cardioversion placed the patient immediately in sinus rhythm, first degree AV block. 10. Continue warfarin. Sotalol is resumed and his metoprolol started in the hospital , was discontinued. 11. Patient's DPOA asked me to take over patient's cardiac care. COMPLICATIONS None. MTDD
== END 2018-05-08 15:10 | DRG 871 ==
LOC: ED 22:32 → MED 05-03 00:39 → SUATTDRO 05-03 00:39 → MED 05-03 00:46 → CCU 05-03 18:20 → MED 05-07 12:16
PROVIDERS: ADMIT Internal Medicine; ATTEND Family Medicine